=== PATIENT | male | born 1995 | race Caucasian/White ===

== ENCOUNTER 2017-06-03 11:06 | Inpatient (IN) | payer OTHER ==
[~2017-06-03] VITALS: Ht 177.8 cm; Wt 65.1 kg
[2017-06-03 11:49] LABS: BASO % 0.5 %; BASO ABS # 0.02 K/uL (0-0.2); COMPLETE YES; EOS % 1.8 %; HEMATOCRIT 43.6 % (42-52); IG% 0.3 %; LYMPH % 41.1 %; LYMPH ABS # 1.61 K/uL (1.2-3.4); MEAN CELL VOLUME 82.6 fL (80-100); MEAN CORPUSCULAR HEMOGLOBIN 27.5 pg (25-34); MEAN CORPUSCULAR HGB CONC 33.3 g/dl (32-36); MEAN PLATELET VOLUME 10.2 fL (7.4-10.4); MONO % 5.4 %; NEUT % 50.9 %; PLATELET COUNT 252 K/uL (130-400); RED BLOOD COUNT 5.28 M/uL (4.7-6.1); WHITE BLOOD COUNT 3.92 K/uL (4.8-10.8)
[2017-06-03 12:07] LABS: BUN/CREATININE RATIO 11.3 (10-20); CALCIUM 8.8 mg/dl (8.5-10.1); CREATININE 0.92 mg/dl (0.60-1.40); POTASSIUM 3.9 mmol/L (3.5-5.1)
[2017-06-03 12:33] LABS: URINE APPEARANCE CLEAR (CLEAR); URINE BILIRUBIN NEG (NEG); URINE COLOR YELLOW; URINE NITRITE NEG (NEG); URINE SPECIFIC GRAVITY 1.014 (1.000-1.030); UROBILINOGEN NEG (NEG)
[2017-06-03 12:34] LABS: MANUAL MICROSCOPIC REQUIRED? NO; REVIEW REQ? NO
--- NOTE | 2017-06-03 12:39 | EMERGENCY ROOM VISIT NOTE ---
History Report prepared by Nicole: Keiry Broussard Under the Supervision of: Dr. Zach Hollins M.D. 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 The patient was sent to the ED from [facility] on campus. He admitted to suicidal ideation with a plan. He was going to steal chemicals from the chemistry lab to make poison to kill himself. He has not been sleeping much lately and estimates that he has been getting about 3-4 hours of sleep each night. This has been going on since the beginning of the semester. The patient reports school is not going well and he has been skipping assignments and classes. Per [facility], the patient has been having thoughts of hurting others. He had to leave class because he wanted to kick a girl out of her chair. Source of History: patient, treating provider ([facility]) Onset: [employer] Position: other (mental health) Quality: other (suicidal) Timing: constant Note: Pt not sleeping. Having SI and HI. Review of Systems See HPI for pertinent positives & negatives. A total of 10 systems reviewed and were otherwise negative. Past Medical & Surgical Medical Problems: (1) No significant active problems Family History No pertinent history stated. Social History Smoking Status: Never Smoker Occupation Status: [employer] student Current/Historical Medications No Active Prescriptions or Reported Meds Allergies Coded Allergies: Penicillins (Unverified Allergy, Severe, CHILDHOOD, HIVES, RASH, SPOTS, ) Physical Exam Vital Signs Date Time Temp Pulse Resp B/P (MAP) Pulse Ox O2 Delivery O2 Flow Rate FiO2 06/03/17 17:15 36.6 84 16 116/61 100 06/03/17 11:09 36.6 84 16 116/61 100 Room Air Physical Exam GENERAL: Patient is a healthy-appearing well-nourished 22 year old male. HEAD: Normocephalic atraumatic EYES: Ocular movements intact pupils equal and react to light OROPHARYNX mucous membranes are moist no exudates present no erythema or edema present NECK: Supple no nuchal rigidity CHEST: Good equal expansion LUNGS: Clear and equal to auscultation CARDIAC: Normal S1 and S2 ABDOMEN: Soft nontender no guarding BACK: No CVA tenderness EXTREMITIES: No pain upon palpation normal muscle strength in all groups no clubbing cyanosis or edema NEURO: Patient is following commands and answering questions appropriately. Alert and oriented x3 Cranial Nerves 2-12 grossly intact PSYCH: Admits to HI and SI with plan. Medical Decision & Procedures Laboratory Results 06/03/17 11:36 Red Blood Count 5.28, Mean Corpuscular Volume 82.6, Mean Corpuscular Hemoglobin 27.5, Mean Corpuscular Hemoglobin Concent 33.3, Mean Platelet Volume 10.2, Neutrophils (%) (Auto) 50.9, Lymphocytes (%) (Auto) 41.1, Monocytes (%) (Auto) 5.4, Eosinophils (%) (Auto) 1.8, Basophils (%) (Auto) 0.5, Neutrophils # (Auto) 2.00, Lymphocytes # (Auto) 1.61, Monocytes # (Auto) 0.21, Eosinophils # (Auto) 0.07, Basophils # (Auto) 0.02 06/03/17 11:36 Test 06/03/17 11:36 06/03/17 11:40 White Blood Count 3.92 K/uL (4.8-10.8) Red Blood Count 5.28 M/uL (4.7-6.1) Hemoglobin 14.5 g/dL (14.0-18.0) Hematocrit 43.6 % (42-52) Mean Corpuscular Volume 82.6 fL (80-100) Mean Corpuscular Hemoglobin 27.5 pg (25-34) Mean Corpuscular Hemoglobin Concent 33.3 g/dl (32-36) Platelet Count 252 K/uL (130-400) Mean Platelet Volume 10.2 fL (7.4-10.4) Neutrophils (%) (Auto) 50.9 % Lymphocytes (%) (Auto) 41.1 % Monocytes (%) (Auto) 5.4 % Eosinophils (%) (Auto) 1.8 % Basophils (%) (Auto) 0.5 % Neutrophils # (Auto) 2.00 K/uL (1.4-6.5) Lymphocytes # (Auto) 1.61 K/uL (1.2-3.4) Monocytes # (Auto) 0.21 K/uL (0.11-0.59) Eosinophils # (Auto) 0.07 K/uL (0-0.5) Basophils # (Auto) 0.02 K/uL (0-0.2) RDW Standard Deviation 35.7 fL (36.4-46.3) RDW Coefficient of Variation 11.9 % (11.5-14.5) Immature Granulocyte % (Auto) 0.3 % Immature Granulocyte # (Auto) 0.01 K/uL (0.00-0.02) Anion Gap 4.0 mmol/L (3-11) Est Creatinine Clear Calc Drug Dose 122.9 ml/min Estimated GFR () 137.3 Estimated GFR (Non- 118.5 BUN/Creatinine Ratio 11.3 (10-20) Calcium Level 8.8 mg/dl (8.5-10.1) Total Bilirubin 1.1 mg/dl (0.2-1) Direct Bilirubin 0.2 mg/dl (0-0.2) Aspartate Amino Transf (AST/SGOT) 12 U/L (15-37) Alanine Aminotransferase (ALT/SGPT) 20 U/L (12-78) Alkaline Phosphatase 108 U/L (45-117) Total Protein 8.0 gm/dl (6.4-8.2) Albumin 4.3 gm/dl (3.4-5.0) Thyroid Stimulating Hormone (TSH) 1.000 uIu/ml (0.300-4.500) Ethyl Alcohol mg/dL < 3.0 mg/dl (0-3) Urine Color YELLOW Urine Appearance CLEAR (CLEAR) Urine pH 7.0 (4.5-7.5) Urine Specific [place] 1.014 (1.000-1.030) Urine Protein NEG (NEG) Urine Glucose (UA) NEG (NEG) Urine Ketones NEG (NEG) Urine Occult Blood NEG (NEG) Urine Nitrite NEG (NEG) Urine Bilirubin NEG (NEG) Urine Urobilinogen NEG (NEG) Urine Leukocyte Esterase NEG (NEG) Urine Opiates Screen NEG (NEG) Urine Methadone, Qualitative NEG (NEG) Urine Barbiturates NEG (NEG) Urine Phencyclidine (PCP) Level NEG (NEG) Ur Amphetamine/Methamphetamine NEG (NEG) MDMA (Ecstasy) Screen NEG (NEG) Urine Benzodiazepines Screen NEG (NEG) Urine Cocaine Metabolite NEG (NEG) Urine Marijuana (THC) NEG (NEG) Labs reviewed by ED physician. ED Course 1120: Past medical records reviewed. The patient was evaluated in room A7. A complete history and physical examination was performed. Medical Decision Differential diagnosis: Etiologies such as mood disorder, infection, hypoglycemia, electrolyte abnormalities, cardiac sources, intracerebral event, toxicologic, neurologic, as well as others were entertained. This is a 22-year-old male who presents emergency department over concerns that he is suicidal and threatening to kill other classmates. Patient had a specific plan to produce cyanide in his laboratory. He has not been sleeping. He has a normal CBC normal renal profile normal liver profile. I do feel the patient is medically cleared. I did discuss the case with case management. The patient was admitted to 3 S. Medication Reconcilliation Current Medication List: was personally reviewed by me Blood Pressure Screening Patient's blood pressure: Normal blood pressure Impression Primary Impression: Planning to commit suicide Scribe Attestation The scribe's documentation has been prepared under my direction and personally reviewed by me in its entirety. I confirm that the note above accurately reflects all work, treatment, procedures, and medical decision making performed by me. Departure Information Dispostion Still a Patient Prescriptions No Active Prescriptions or Reported Meds Referrals No Doctor, Assigned (PCP) Patient Instructions My [facility]
[2017-06-03 12:48] LABS: BENZODIAZEPINE, URINE NEG (NEG); COCAINE,URINE NEG (NEG); PHENCYCLIDINE, URINE NEG (NEG)
[2017-06-03] MEDS ORDERED: MAGNESIUM HYDROXIDE SUSP 30 ML UDC PO PRN (14:30)
[2017-06-03] MEDS ORDERED: BISMUTH SUBSALICYLATE PER ML OMNICELL CHARGE PO PRN (14:30)
[2017-06-03] MEDS ORDERED: ALUMINUM/MAGNESIUM SUSP 30 ML UDC PO PRN (14:30)
[2017-06-03] MEDS ORDERED: ACETAMINOPHEN 325 MG TAB PO PRN (14:30)
[2017-06-03] MEDS ORDERED: SODIUM CHLORIDE 0.65% NA SOLN 45 ML (OCEAN) PRN (14:30)
[2017-06-03] MEDS ORDERED: LORAZEPAM 1 MG TAB PO PRN (14:30)
[2017-06-03] MEDS ORDERED: hydrOXYzine HCL 25 MG TAB PO PRN ×2 (14:30)
[2017-06-03 17:15] VITALS: O2SAT 100
[2017-06-03 17:27] VITALS: BP 114/65; PULSE 78; TEMP 36.8; Ht 177.8 cm; Wt 65.1 kg
[2017-06-04 06:55] VITALS: BP_SYST 91; BP_SYST 92; BP_DIAS 58; BP_DIAS 59; PULSE 71; TEMP 36.8
--- NOTE | 2017-06-04 11:04 | Psychiatric History & Physical ---
History Date of Service Jun 04, 2017. Identifying Data Ty Barfield is a 22-year-old male ela at [employer]. Ty Barfield was admitted on a 201 voluntary. The patient was brought to the ED upon referral from the [facility] counseling service, [facility]. Information provided by the patient is considered to be reliable. Chief Complaint "I told my therapist that I was having thoughts of suicide, and when she asked me who I would contact if I was going to kill myself, like a smart ass I ask her why would tell anyone if I was going to kill myself?" History of Present Illness The patient is a 22-year-old man who was evaluated by the undersigned this morning. He was admitted yesterday afternoon from the emergency department or he had presented upon referral by the [facility] counseling service ("[facility]"). According to the record, and according the patient, the patient had told his therapist at [facility] that he was having suicidal thoughts. 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 He went as far as to research the quantity he would need to take to kill himself without experiencing a particularly painful . He tells me that he found that approximately 5 mL of Aniline would quickly cause , after perhaps inducing a brief seizure. The patient reports that he is suffered from depression since his high school years. He tells me that in his culture is not unusual for people to express feelings of sadness, but he has experienced depressed mood, apathy, anergy, anhedonia, intermittent and terminal insomnia, lack of motivation, and psychosocial withdrawal. Patient reports that his peers of depression have improved periodically during the past several years, but recently he has been more depressed than usual and, for the first time, stopped caring to the degree that he has begun failing certain classes. He says that he often daydreams in class, has difficulty paying attention, and tends to ruminate. Although the patient says that he did not necessarily have suicidal intent in the here and now, his plan was to create a lethal toxin in order to have on hand should he decide to act. The patient also says that although he has not deliberately made suicide attempts in the past, he has on several occasions intentionally walked into traffic without looking, and explains this by saying, "I guess I just didn't care if I got hit or not." He has never taken any psychiatric medications, and has had no trial of antidepressant medications. The reference to suicide threats noted above were made in his second session with his therapist. He says that he sought treatment because he was not motivated to study, or even play video games. Past Psychiatric History Current OP Treatment: therapist ([facility]) Prior OP Treatment: no prior treatment Prior Psych Hospitalizations: none Access to a Gun: No Suicide Attempts: No Additional Notes Although the patient says that he has never made a conscious suicide attempt, he acknowledges that there have been several occasions upon which she has stepped off a curb and into a straight without looking to see if a car was coming, and he explains this by saying that he, at those times, didn't care if he was struck by a car or not. Past Medical/Surgical History History of Concussion/Seizure: No (1) Major depression, recurrent (2) Planning to commit suicide Allergies Allergies: Coded Allergies: Penicillins (Unverified Allergy, Severe, CHILDHOOD, HIVES, RASH, SPOTS, ) Home Medications No Active Prescriptions or Reported Meds Family History Depression BROTHER, Onset:Adolescence (The patient only suspects that his brother may be depressed.) History of Suicide: No History of Substance Abuse: No Psychiatric History: Yes Alcohol Use Alcohol Use In Past 12 Months: No AUDIT Total Score: 0 Smoking Use Smoking Status: Never Smoker Substance History The patient reports that he has never used illicit chemical substances, and notes that the use of illicit drugs is prohibited by his orthodox. He also acknowledges that suicide is prohibited by his orthodox, but adds that he " picks and chooses" which lutheran law he chooses to follow. 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 He reports he manages this by avoiding eating particularly hard foods, such as almonds.) Cardiovascular: denies: no symptoms reported, see HPI, chest pain, chest tightness, chest pressure, diaphoresis, palpitations, syncope, other Respiratory: denies: no symptoms reported, see HPI, cough, orthopnea, short of breath, stridor, wheezing, sputum production, cyanosis, SARAH, PND, other Gastrointestinal: denies no symptoms reported, denies see HPI, denies abdominal pain, denies constipation, denies diarrhea, denies nausea, denies vomiting, denies other Genitourinary - Male: denies: no symptoms, see HPI, rash, amenorrhea, penile itching, penile discharge, testicular pain, testicular swelling, impotence, other Musculoskeletal: denies no symptoms reported, denies see HPI, denies back pain , denies gout, denies joint pain, denies joint swelling, denies muscle pain, denies muscle stiffness, denies neck pain, denies other Integumentary: denies no symptoms reported, denies see HPI, denies change in color, denies change in hair/nails, denies dryness, denies lesions, denies lumps , denies rash, denies other Neurologic: denies: no symptoms, see HPI, headache, numbness, paresthesias, pre -existing deficit, seizure, tingling, tremors, general weakness, tics, focal weakness, vertigo, lethargy, memory loss, dizziness, other Endocrine: denies: no symptoms, as stated in HPI, cold intolerance, heat intolerance, hair changes, goiter, polydipsia, polyuria, skin changes, other Hematologic / Lymphatic: denies: no symptoms, as stated in HPI, abnormal clotting, adenopathy, anemia, easy bleeding, easy bruising, gums bleeding, petechiae, other Examination Physical Examination A physical exam was performed in the ER prior to admission to the unit. I accept that physical as correct/medical clearance for the inpatient physical exam. Vital Signs Vital Signs Past 12 Hours Date Time Temp Pulse Resp B/P (MAP) Pulse Ox O2 Delivery O2 Flow Rate FiO2 10/13/17 06:55 36.8 71 16 91/59 92/58 Laboratory Results Last 24 Hours Test 06/03/17 11:36 06/03/17 11:40 White Blood Count 3.92 K/uL Red Blood Count 5.28 M/uL Hemoglobin 14.5 g/dL Hematocrit 43.6 % Mean Corpuscular Volume 82.6 fL Mean Corpuscular Hemoglobin 27.5 pg Mean Corpuscular Hemoglobin Concent 33.3 g/dl Platelet Count 252 K/uL Mean Platelet Volume 10.2 fL Neutrophils (%) (Auto) 50.9 % Lymphocytes (%) (Auto) 41.1 % Monocytes (%) (Auto) 5.4 % Eosinophils (%) (Auto) 1.8 % Basophils (%) (Auto) 0.5 % Neutrophils # (Auto) 2.00 K/uL Lymphocytes # (Auto) 1.61 K/uL Monocytes # (Auto) 0.21 K/uL Eosinophils # (Auto) 0.07 K/uL Basophils # (Auto) 0.02 K/uL RDW Standard Deviation 35.7 fL RDW Coefficient of Variation 11.9 % Immature Granulocyte % (Auto) 0.3 % Immature Granulocyte # (Auto) 0.01 K/uL Sodium Level 138 mmol/L Potassium Level 3.9 mmol/L Chloride Level 105 mmol/L Carbon Dioxide Level 29 mmol/L Anion Gap 4.0 mmol/L Blood Urea Nitrogen 10 mg/dl Creatinine 0.92 mg/dl Est Creatinine Clear Calc Drug Dose 122.9 ml/min Estimated GFR () 137.3 Estimated GFR (Non- 118.5 BUN/Creatinine Ratio 11.3 Random Glucose 89 mg/dl Calcium Level 8.8 mg/dl Total Bilirubin 1.1 mg/dl Direct Bilirubin 0.2 mg/dl Aspartate Amino Transf (AST/SGOT) 12 U/L Alanine Aminotransferase (ALT/SGPT) 20 U/L Alkaline Phosphatase 108 U/L Total Protein 8.0 gm/dl Albumin 4.3 gm/dl Thyroid Stimulating Hormone (TSH) 1.000 uIu/ml Ethyl Alcohol mg/dL < 3.0 mg/dl Urine Color YELLOW Urine Appearance CLEAR Urine pH 7.0 Urine Specific [place] 1.014 Urine Protein NEG Urine Glucose (UA) NEG Urine Ketones NEG Urine Occult Blood NEG Urine Nitrite NEG Urine Bilirubin NEG Urine Urobilinogen NEG Urine Leukocyte Esterase NEG Urine Opiates Screen NEG Urine Methadone, Qualitative NEG Urine Barbiturates NEG Urine Phencyclidine (PCP) Level NEG Ur Amphetamine/Methamphetamine NEG MDMA (Ecstasy) Screen NEG Urine Benzodiazepines Screen NEG Urine Cocaine Metabolite NEG Urine Marijuana (THC) NEG Mental Examination During interview pt is: alert and oriented, cooperative Appearance: appropriately dressed, appropriately groomed Eye contact is: good Motor behavior is: no abnormal motor movements Speech: normal in rate, rhythm & volume Affect: depressed Mood is: depressed Thought process: goal directed Thought content: reality based without delusions Suicidal thought are: present, Plan: present, Intent: denied Homicidal thoughts are: denied Hallucinations: denies auditory, denies visual Cognition: memory grossly intact Intelligence estimated to be: above average Insight: impaired Judgement: impaired Impression / Recommendations Impression This 22-year-old man has a history of recurrent major depressive episodes began during adolescence. He tells me that he has become good at "hiding" his true feelings, and endorses first rank symptoms of depression, including depressed mood, apathy, anergy, anhedonia, intermittent and terminal insomnia, psychosocial withdrawal, difficulty concentrating, and a general lack of motivation. The patient acknowledges that he has had recurrent suicidal thoughts, intermittently, for a number of years. While he feels that he was depressed during his first 2 years of college, this year his depression has intensified and has manifested itself by a lack of motivation to do well in school, and difficulty caring enough to study or pay attention in classes. He is clearly future oriented, and talks about wanting to leave the hospital so that he can complete several obligations he has involving games such as [employer]inja [employer] and [employer]. He also says that he is eager to get back to college so that he can "recover his grades," and successfully complete the current semester. At the same time, the patient provides a frighteningly specific suicide plan, and he freely admits that he has the ability to secure the poison that he would take to kill himself. He has never been offered a trial of antidepressant medications, and has only recently begun psychotherapy. During the evaluation I discussed the material risks and anticipated benefits of antidepressant medications, and specifically discussed a trial of sertraline ( Zoloft) with him. The patient indicated understanding after asking several questions. He is particular concern about the possibility of developing nausea because of his poor appetite, and I attempted to address these with him. My concern is that the patient, while clearly ambivalent about committing suicide, remains depressed, and although he endorses future plans, such as successfully completing this semester, leaving to on her commitments he has to play certain games with peers, etc., his present condition would prevent him from accomplishing his goals, and he would be at risk of imminent serious harm. Accordingly, I would like to start him on an antidepressant medication, observe him over the weekend, and consider that he may be ready for discharge early next week if all goes well. Inventory Assets Strengths: Intelligent. Strong lutheran thanh. Active interests. Enjoys hobbies such as horseback riding, reading, and has attempted to write a novel in the past. Needs: The patient has recurrent suicidal ideation within the context of recurrent major depression. Risk Factors Assessment Male: Yes : Yes /single/: Yes Higher / Fall in social status: No Access to guns: No Health problems: No Mental Health Diagnoses: Yes Substance use disorders: No Previous attempt: No Previous attempt;highly lethal: No Previous attempt; planned: No Previous attempt; didn't tell: No Family history of suicide: No Previous psychiatric stay: No Hopelessness: No Smoker: No Protective Factors Assessment Restorationism beliefs: Yes : No Responsible for young children: No Employed: No Stable relationships: Yes Supportive family: No Good rapport with provider: No Absence of risk factors above: No CPT Code Initial Hospital Care: 10875
[2017-06-04] MEDS ORDERED: SERTRALINE HCL 50 MG TAB PO ONE (11:30)
[2017-06-05 06:49] VITALS: BP_SYST 105; BP_SYST 112; BP_DIAS 62; BP_DIAS 74; PULSE 77; PULSE 87; TEMP 36.4
[2017-06-05] MEDS: SERTRALINE HCL 50 MG TAB PO SCH (07:58)
--- NOTE | 2017-06-05 10:04 | Psychiatric Progress Notes ---
Progress Note Date of Service Jun 05, 2017. Chief Complaint "It's sort of feels like a movie." Subjective Patient was seen & assessed interval progress reviewed with Treatment Team. No acute events overnight. Staff describe patient as poorly interactive during groups. Yesterday he rated his mood as 5 out of 10. He was started on Zoloft yesterday. This morning he reports that his first dose of Zoloft was associated with a few hours of nausea, however he seems to be tolerating it better this morning so far. We discussed his negative self assessment, feelings of failure, of not being "special." He demonstrates dichotomous thinking, either he is a success or a failure. He also tends to stratify value of people stating that he is "better" than his family at home but "I haven't done anything special." He describes feeling pity rather than empathy for his family at home. He compares himself negatively to his peers at school. He acknowledges continued feelings of hopelessness and that there is little purpose to his life. He states that no one would miss him if he was not here. That his parents would probably grief for a few days and then they would "get over it and they wouldn't have to burden." Review of Systems Abdomen: + nausea (yesterday but not this morning) Psychiatric: + problem reported (continued thoughts of worthlessness) Sleep Information Total Hours of Sleep: 6.25 Meal Information Percent of Breakfast Consumed: 100 Percent of Lunch Consumed: 100 Percent of Dinner Consumed: 0 Mental Status Exam During interview pt is: alert and oriented, cooperative Appearance: appropriately dressed, appropriately groomed Eye contact is: good Motor behavior is: no abnormal motor movements Speech: normal in rate, rhythm & volume Affect: depressed Mood is: depressed Thought process: goal directed Thought content: reality based without delusions, self deprecation Suicidal thought are: present, Plan: present, Intent: denied Homicidal thoughts are: denied Hallucinations: denies auditory, denies visual Cognition: memory grossly intact Intelligence estimated to be: above average Insight: impaired Judgement: impaired Impression This 22-year-old man has a history of recurrent major depressive episodes began during adolescence. He tells me that he has become good at "hiding" his true feelings, and endorses first rank symptoms of depression, including depressed mood, apathy, anergy, anhedonia, intermittent and terminal insomnia, psychosocial withdrawal, difficulty concentrating, and a general lack of motivation. The patient acknowledges that he has had recurrent suicidal thoughts, intermittently, for a number of years. While he feels that he was depressed during his first 2 years of college, this year his depression has intensified and has manifested itself by a lack of motivation to do well in school, and difficulty caring enough to study or pay attention in classes. He is clearly future oriented, and talks about wanting to leave the hospital so that he can complete several obligations he has involving games such as [employer] and [employer]. He also says that he is eager to get back to college so that he can "recover his grades," and successfully complete the current semester. At the same time, the patient provides a frighteningly specific suicide plan, and he freely admits that he has the ability to secure the poison that he would take to kill himself. He has never been offered a trial of antidepressant medications, and has only recently begun psychotherapy. During the evaluation I discussed the material risks and anticipated benefits of antidepressant medications, and specifically discussed a trial of sertraline ( Zoloft) with him. The patient indicated understanding after asking several questions. He is particular concern about the possibility of developing nausea because of his poor appetite, and I attempted to address these with him. My concern is that the patient, while clearly ambivalent about committing suicide, remains depressed, and although he endorses future plans, such as successfully completing this semester, leaving to on her commitments he has to play certain games with peers, etc., his present condition would prevent him from accomplishing his goals, and he would be at risk of imminent serious harm. Accordingly, I would like to start him on an antidepressant medication, observe him over the weekend, and consider that he may be ready for discharge early next week if all goes well. Plan (1) Major depression, recurrent 06/05/17 - Continue Zoloft 50 mg daily watching nausea - Encouraged to participate in unit programming to facilitate more balanced insight. 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 Strong religion thanh. Active interests. Enjoys hobbies such as horseback riding, reading, and has attempted to write a novel in the past. Needs: The patient has recurrent suicidal ideation within the context of recurrent major depression. Risk Factors Assessment Male: Yes : Yes /single/: Yes Higher / Fall in social status: No Health problems: No Mental Health Diagnoses: Yes Substance use disorders: No Previous attempt: No Previous attempt;highly lethal: No Previous attempt; planned: No Previous attempt; didn't tell: No Family history of suicide: No Previous psychiatric stay: No Hopelessness: No Smoker: No Protective Factors Assessment Temple beliefs: Yes : No Responsible for young children: No Employed: No Stable relationships: Yes Supportive family: No Good rapport with provider: No Absence of risk factors above: No Data Vital Signs Last 24 Hrs: Date Time Temp Pulse Resp B/P (MAP) Pulse Ox O2 Delivery O2 Flow Rate FiO2 06/05/17 06:49 36.4 77 16 105/62 87 112/74 Meds Administered Last 24 Hrs: Meds Administered (Past 24Hrs) Medications (Trade) Dose Ordered Sig/Feli Route Start Time Stop Time Status Last Admin Dose Admin Sertraline HCl (Zoloft Tab) 50 mg QAM PO 06/05/17 09:00 07/05/17 08:59 06/05/17 07:58 50 MG Sertraline HCl (Zoloft Tab) 50 mg NOW ONCE PO 06/04/17 11:30 06/04/17 11:31 DC 06/04/17 11:42 50 MG Problem Qualifiers (1) Major depression, recurrent: Active/Remission status: currently active Major depression episode severity: severe Psychotic features: without psychotic features Qualified Codes: F33.2 - Major depressive disorder, recurrent severe without psychotic features
[2017-06-06 06:59] VITALS: BP_SYST 92; BP_SYST 94; BP_DIAS 56; BP_DIAS 63; PULSE 63; PULSE 87; TEMP 36.7
[2017-06-06] MEDS: SERTRALINE HCL 50 MG TAB PO SCH (08:55)
--- NOTE | 2017-06-06 12:02 | Psychiatric Progress Notes ---
Progress Note Date of Service Jun 06, 2017. Chief Complaint "I'm beginning to realize some things about the way that I think". Subjective Patient was seen & assessed interval progress reviewed with Treatment Team. Patient submitted a 72 hour notice last evening which will be due on the at 1458. He was visited by friends last evening and appeared social. He has not complained of nausea. No acute events overnight. On interview this morning the patient now feels that he is tolerating the Zoloft well however his appetite is a little diminished this morning. He has identified that learning of a new relationship between a male and female friend recently seemed to trigger some low mood and negative self scrutiny. "I felt like I lost a challenge." This was explored and he identifies belief that the female friend ( whom he reports he had no particular interest in beyond the friendship) chose to date his male friend because he was smarter than the patient. Attempted to eliminate the distorted thinking involved in this and identified that he likely has a pattern of similar thinking, hypersensitive to evidence that he may be "defective" in some way. This appeared to resonate with him and he was encouraged to continue to explore this and psychotherapy here on the unit and also individually as an outpatient. 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 We also explored his homicidal impulses noted a presentation in regard to continuing his medically necessary private room. He reports that these impulses have been rather abrupt and out of the blue in the past, often in proximity to his peers. He acknowledges that he has had some homicidal/ aggressive impulses towards another young male patient within the last 24 hours and fantasized about fighting this individual but try to distract himself. He expresses feeling uncertain about how he would react to being in close proximity to a roommate "if he talked too much." As such, we'll continue the room for another 24 hours. Review of Systems Abdomen: No nausea Psychiatric: + depression symptoms Sleep Information Total Hours of Sleep: 5.50 Meal Information Percent of Breakfast Consumed: 75 Percent of Lunch Consumed: 100 Percent of Dinner Consumed: 100 Mental Status Exam During interview pt is: alert and oriented, cooperative Appearance: appropriately dressed, appropriately groomed Eye contact is: good Motor behavior is: steady gait & station Speech: normal in rate, rhythm & volume Affect: mood congruent Mood is: depressed, other (but with some interval improvement noted) Thought process: goal directed Thought content: reality based without delusions, self deprecation Suicidal thought are: present, Plan: present, Intent: denied Homicidal thoughts are: present, Intent: denied Hallucinations: denies auditory, denies visual Cognition: memory grossly intact Intelligence estimated to be: above average Insight: impaired Judgement: impaired Plan (1) Major depression, recurrent 06/05/17 - Continue Zoloft 50 mg daily watching nausea - Encouraged to participate in unit programming to facilitate more balanced insight. 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 Strong samaritan thanh. Active interests. Enjoys hobbies such as horseback riding, reading, and has attempted to write a novel in the past. Needs: The patient has recurrent suicidal ideation within the context of recurrent major depression. Risk Factors Assessment Male: Yes : Yes /single/: Yes Higher / Fall in social status: No Health problems: No Mental Health Diagnoses: Yes Substance use disorders: No Previous attempt: No Previous attempt;highly lethal: No Previous attempt; planned: No Previous attempt; didn't tell: No Family history of suicide: No Previous psychiatric stay: No Hopelessness: No Smoker: No Protective Factors Assessment Christianity beliefs: Yes : No Responsible for young children: No Employed: No Stable relationships: Yes Supportive family: No Good rapport with provider: No Absence of risk factors above: No Data Vital Signs Last 24 Hrs: Date Time Temp Pulse Resp B/P (MAP) Pulse Ox O2 Delivery O2 Flow Rate FiO2 06/06/17 06:59 36.7 63 16 92/56 87 94/63 Meds Administered Last 24 Hrs: Meds Administered (Past 24Hrs) Medications (Trade) Dose Ordered Sig/Feli Route Start Time Stop Time Status Last Admin Dose Admin Sertraline HCl (Zoloft Tab) 50 mg QAM PO 06/05/17 09:00 07/05/17 08:59 06/06/17 08:55 50 MG Problem Qualifiers (1) Major depression, recurrent: Active/Remission status: currently active Major depression episode severity: severe Psychotic features: without psychotic features Qualified Codes: F33.2 - Major depressive disorder, recurrent severe without psychotic features
[2017-06-06] MEDS ORDERED: SERTRALINE HCL 50 MG TAB PO ONE (12:15)
[2017-06-07 06:53] VITALS: BP_SYST 84; BP_SYST 94; BP_DIAS 46; BP_DIAS 62; PULSE 81; PULSE 91; TEMP 36.4
[2017-06-07] MEDS: SERTRALINE HCL 50 MG TAB PO SCH (08:49)
--- NOTE | 2017-06-07 13:01 | Psychiatric Progress Notes ---
Progress Note Date of Service Jun 07, 2017. Chief Complaint "They were going well, but just started feeling depressed suddenly last evening ". Subjective Patient was seen & assessed interval progress reviewed with Treatment Team. Staff reports the patient is attending groups, participating, and is pleasant and social with others. He had multiple friends visit over the weekend. His sertraline has been increased to 75 mg daily. He states that his mood had initially improved on admission, but then worsened suddenly last night when playing cards with peers, and he is not sure why. He states "it's probably something genetic," saying his mother just disclosed to him during this hospitalization that there is a significant family history of depression. He also thinks that he was "subduing my stressors," stating that he is having a "crisis of thanh," and was also supposed to be engaged as part of an arranged marriage earlier this year, but his father contacted him in March and told him that he didn't think the patient was ready to be , so they were not going to move forward with it. He states that he "didn't process it immediately ," as he was busy with moving back to the [facility] and getting ready for the semester to start, but has now been thinking about it more, and feels badly about it. He states that he is here because he "slipped up and told my therapist I was thinking of killing myself. If all went according to plan, I don't think I'd be alive right now." He states he was planning on killing himself today, as "the weekend would be over, and I wouldn't have to deal with the work." He says he still considers suicide option, but only as a last resort , "a hail Marcy." He states he is performing poorly in school, and is considering a medical withdrawal. He is not sure if he would return home to [facility] or stay in the [place], and says he would prefer to stay here and "travel around." He says his mother "blames herself for me being in the hospital and being treated like a convict," and thinks his father is mad at him for "telling people I'm gonna kill myself." He admits to thoughts to harm others, which she says have been going on for years, although he denies he's ever actually acted on them. He says that prior to admission, they were "clouding my mind," but since hospitalization, they have only occurred once on Wednesday, when he was annoyed with a peer. He states that he does not think he would ever act on these thoughts, unless another person that assaulted him. He states he submitted a 72 hour notice because he is "bored," but after some discussion of the treatment recommendations and concerns about his lack of a discharge plan, he agreed to rescind it. Joined the patient and social science professor for a family meeting with his parents by phone, as they expressed concerns about him being prescribed medications. Provided information about what the medications are being used for and what they can reasonably be expected to do, and also discussed recommendations for outpatient treatment after discharge. The patient ultimately agreed to take a medical withdrawal and return home to [facility], and father is coming to [id number] on Wednesday. See social science professor note for details. Sleep Information Total Hours of Sleep: 7.00 Meal Information Percent of Breakfast Consumed: 100 Percent of Lunch Consumed: 100 Percent of Dinner Consumed: 100 Mental Status Exam During interview pt is: alert and oriented, cooperative Appearance: appropriately dressed (street cltohes, wrapped in blanket), appropriately groomed Eye contact is: good Motor behavior is: steady gait & station, no abnormal motor movements Speech: normal in rate, rhythm & volume Affect: mood congruent, other (reactive and mood congruent) Mood is: depressed Thought process: goal directed Thought content: reality based without delusions, self deprecation Suicidal thought are: denied Homicidal thoughts are: present (thoughts to harm others last occurred Sat., denies intent) Hallucinations: denies auditory, denies visual Cognition: memory grossly intact, attention grossly intact, language grossly intact Intelligence estimated to be: above average Insight: fair Judgement: fair Summary of Past History Ali is tolerating sertraline well, with some mild nausea, and after a family meeting with his parents, decided to medically withdrawal from school and return home to [facility]. We will need to work with him, the school, and his parents to coordinate this and ensure safe transition of care. is going to look into local aftercare in their area, and is flying to the at the end of the week. At this time, he requires continued inpatient care due to the risk for decompensation and harm to self and others if discharged prematurely. Plan (1) Major depression, recurrent 06/05/17 - Continue Zoloft 50 mg daily watching nausea - Encouraged to participate in unit programming to facilitate more balanced insight. 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 Monitor nausea. - Family meeting held with parents, and patient is going to pursue a medical withdrawal. He will be returning home to [facility], so we will need to arrange aftercare there. Discharge / Aftercare Planning Primary Care Physician: Name: None Therapist: Name: Hannah Corley, ANGIE Visit Code E&M Code: 64995 Inventory Assets Strengths: Intelligent. Strong scientology thanh. Active interests. Enjoys hobbies such as horseback riding, reading, and has attempted to write a novel in the past. Needs: The patient has recurrent suicidal ideation within the context of recurrent major depression. Risk Factors Assessment Male: Yes : Yes /single/: Yes Higher / Fall in social status: No Health problems: No Mental Health Diagnoses: Yes Substance use disorders: No Previous attempt: No Previous attempt;highly lethal: No Previous attempt; planned: No Previous attempt; didn't tell: No Family history of suicide: No Previous psychiatric stay: No Hopelessness: No Smoker: No Protective Factors Assessment Uatsdin beliefs: Yes : No Responsible for young children: No Employed: No Stable relationships: Yes Supportive family: Yes Good rapport with provider: No Absence of risk factors above: No Data Vital Signs Last 24 Hrs: Date Time Temp Pulse Resp B/P (MAP) Pulse Ox O2 Delivery O2 Flow Rate FiO2 06/07/17 06:53 36.4 81 16 84/46 91 94/62 Meds Administered Last 24 Hrs: Meds Administered (Past 24Hrs) Medications (Trade) Dose Ordered Sig/Feli Route Start Time Stop Time Status Last Admin Dose Admin Sertraline HCl (Zoloft Tab) 75 mg QAM PO 06/07/17 09:00 07/05/17 08:59 06/07/17 08:49 75 MG Sertraline HCl (Zoloft Tab) 25 mg NOW ONCE PO 06/06/17 12:15 06/06/17 12:25 DC 06/06/17 12:43 25 MG Problem Qualifiers (1) Major depression, recurrent: Active/Remission status: currently active Major depression episode severity: severe Psychotic features: without psychotic features Qualified Codes: F33.2 - Major depressive disorder, recurrent severe without psychotic features
[2017-06-08 06:48] VITALS: BP_SYST 114; BP_SYST 96; BP_DIAS 58; BP_DIAS 69; PULSE 63; PULSE 92; TEMP 36.6
[2017-06-08] MEDS: SERTRALINE HCL 50 MG TAB PO SCH (09:01)
--- NOTE | 2017-06-08 10:47 | Psychiatric Progress Notes ---
Progress Note Date of Service Jun 08, 2017. Chief Complaint "Unfortunately I feel like another bout of depression". Subjective Patient was seen & assessed interval progress reviewed with Nursing. Staff report he is going to groups and participating. He had a difficult meeting with his parents in [facility] by phone yesterday. He told staff he felt guilty after friends visited and he didn't feel anything towards them. Today he states he feels worse after talking to his parents, "after hearing my mom cry, I started thinking about suicide again...the thoughts are there, 'You're such a disappointment, you should kill yourself, look what you're doing to your mom, you're wasting your time'." He feels safe in the hospital, but doesn't feel safe to leave, as he feel overwhelmed by these thoughts. He is trying to think positively, and to have hope that he will recover. He talks about "defense mechanisms" he uses where he feels no emotions, as he prefers that to feeling negative emotions, and thinks this is not healthy. He says he has not "really cried in a long time, I just fake cry." He is still considering his options after discharge, and parents are looking into providers in [facility], but he is still not sure he will return there immediately. He is thinking about staying in [place] until , vs going home to [facility] now and returning to [facility] for the spring. He is hoping to not spend much time at home in [facility], as he thinks it will be harder to return to school if he is gone for too long. He is planning to stay in [place] for at least a few weeks after discharge as "I have some things to take care of first." Sleep Information Total Hours of Sleep: 6.75 Meal Information Percent of Breakfast Consumed: 75 Percent of Lunch Consumed: 75 Percent of Dinner Consumed: 100 Mental Status Exam During interview pt is: alert and oriented, cooperative Appearance: appropriately dressed (street clothes, wrapped in blanket), appropriately groomed Eye contact is: good Motor behavior is: steady gait & station, no abnormal motor movements Speech: normal in rate, rhythm & volume Affect: mood congruent, other (reactive and mood congruent) Mood is: depressed Thought process: goal directed Thought content: reality based without delusions, self deprecation Suicidal thought are: denied Homicidal thoughts are: present (thoughts to harm others last occurred Sat., denies intent) Hallucinations: denies auditory, denies visual Cognition: memory grossly intact, attention grossly intact, language grossly intact Intelligence estimated to be: above average Insight: fair Judgement: fair Summary of Past History Ali is tolerating sertraline well, and we will increase the dose 200 mg for tomorrow. After the family meeting with his parents, he has decided to medically withdrawal from school and return home to [facility], but may not do this for several weeks, so we'll need local aftercare in the interim. We will need to work with him, the school, and his parents to coordinate this and ensure safe transition of care. Father is going to look into local aftercare in their area, and is flying to the at the end of the week. At this time, he requires continued inpatient care due to the risk for suicide, as he has had a recurrence of suicidal thoughts over the past 2 days in the context of distress about his situation. He is able to contract for safety in the hospital, but not outside. Plan (1) Major depression, recurrent 06/05/17 - Continue Zoloft 50 mg daily watching nausea - Encouraged to participate in unit programming to facilitate more balanced insight. 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 Monitor nausea. - Family meeting held with parents, and patient is going to pursue a medical withdrawal. He will be returning home to [facility], so we will need to arrange aftercare there. 06/08 - Increase sertraline to 100mg qam for tomorrow to target depression. - Continue to work on discharge plans, as patient unsure when he will be returning to [facility], and will need aftercare locally in the interim. He has a therapist at [facility], so we will refer him back there and requested psychiatric appointment as well. - Parents working on locating a therapist and psychiatrist in [facility]. Discharge / Aftercare Planning Primary Care Physician: Name: None Therapist: Name: aHnnah Corley CAPS Visit Code E&M Code: 93176 Inventory Assets Strengths: Intelligent. Strong anabaptism thanh. Active interests. Enjoys hobbies such as horseback riding, reading, and has attempted to write a novel in the past. Needs: The patient has recurrent suicidal ideation within the context of recurrent major depression. Risk Factors Assessment Male: Yes : Yes /single/: Yes Higher / Fall in social status: No Health problems: No Mental Health Diagnoses: Yes Substance use disorders: No Previous attempt: No Previous attempt;highly lethal: No Previous attempt; planned: No Previous attempt; didn't tell: No Family history of suicide: No Previous psychiatric stay: No Hopelessness: No Smoker: No Protective Factors Assessment Buddhist beliefs: Yes : No Responsible for young children: No Employed: No Stable relationships: Yes Supportive family: Yes Good rapport with provider: No Absence of risk factors above: No Data Vital Signs Last 24 Hrs: Date Time Temp Pulse Resp B/P (MAP) Pulse Ox O2 Delivery O2 Flow Rate FiO2 06/08/17 06:48 36.6 63 16 96/58 92 114/69 Meds Administered Last 24 Hrs: Meds Administered (Past 24Hrs) Medications (Trade) Dose Ordered Sig/Feli Route Start Time Stop Time Status Last Admin Dose Admin Sertraline HCl (Zoloft Tab) 75 mg QAM PO 06/07/17 09:00 07/05/17 08:59 06/08/17 09:01 75 MG Sertraline HCl (Zoloft Tab) 25 mg NOW ONCE PO 06/06/17 12:15 06/06/17 12:25 DC 06/06/17 12:43 25 MG Problem Qualifiers (1) Major depression, recurrent: Active/Remission status: currently active Major depression episode severity: severe Psychotic features: without psychotic features Qualified Codes: F33.2 - Major depressive disorder, recurrent severe without psychotic features
[2017-06-09 06:54] VITALS: BP_SYST 103; BP_SYST 95; BP_DIAS 57; BP_DIAS 64; PULSE 71; PULSE 79; TEMP 36.3
[2017-06-09] MEDS ORDERED: SERTRALINE HCL 100 MG TAB PO SCH (09:00)
[2017-06-09] MEDS ORDERED: ZLF/100 PO (09:45)
--- NOTE | 2017-06-09 09:56 | Discharge Instructions ---
Discharge Information Report Includes Report will include the: Discharge Instructions & Summary Admission Admission Date / Time: Jun 03, 2017 at 17:15 Reason for Admission: Depression Nos Discharge Discharge Diagnosis / Problem: Depression Condition at Discharge: Good Discharge Goals Goal(s): Decrease discomfort, Improve disease control, Prevent Disease Progression Activity Recommendations Activity Limitations: resume your previous activity . Instructions / Follow-Up Instructions / Follow-Up . SPECIAL CARE INSTRUCTIONS: 1. Follow through with your scheduled aftercare appointments. If unable to keep an appointment, please call to reschedule. 2. Take your medication only as prescribed. Medication should not be changed or stopped without the approval of your doctor. In the event of worsening symptoms or concerns about side effects, contact your doctor immediately. 3. Utilize new healthy coping skills, anger management skills, and stress management skills learned during your hospitalization. Journal feelings and process them with a support person. Identify stressors or situations that may result in relapse, deterioration or inappropriate behaviors and develop a plan to deal with those issues. 4. If your coping skills are ineffective and you are in crisis, contact your outpatient providers for direction. If unable to reach your providers, please call the CAN HELP LINE AT or go to the closest Emergency Room. 5. Avoid alcohol and un-prescribed drugs. 6. You have been provided with the Mental Health Advance Directives Pamphlet for your review. AFTERCARE APPOINTMENTS: * Please call your insurance company prior to your scheduled appointment to confirm your aftercare providers are covered. Take your insurance information to your appointments. . Discharge / Aftercare Planning Primary Care Physician: Name: None Therapist: Name Of Therapist: Hannah Corley CAPS Home Health Services: Home Health Services: none . Follow-Up Care Plan for Follow-Up Care: The patient will return to [facility] for psychiatric care. Current Hospital Diet Patient's current hospital diet: Kosher Diet Discharge Diet Recommended Diet: Kosher Diet Procedures Procedures Performed: No Pending Studies Pending Studies at Discharge: No Medical Emergencies . Who to Call and When: Medical Emergencies: For questions or emergencies related to your hospital stay, please contact the Inpatient Behavioral Health Unit at [phone]. A senior applications analyst is on-call 15/03 for the Behavioral Health Unit for emergencies At any time you feel your situation is an emergency, you may also call 911 immediately. . Non-Emergent Contact Non-Emergency issues call your: Psychiatrist, Therapist Advance Directives Existing Advance Directive: No Do You Have an Existing Mental: No Existing Living Will: No Existing Power of Curam Developer: No Advance Directives Info Given: To Pt/S.O. Advance Directives Reason: Declines as Mental Health Visit. Discharge Summary Admission HPI Per the Admitting provider: The patient is a 22-year-old man who was evaluated by the undersigned this morning. He was admitted yesterday afternoon from the emergency department or he had presented upon referral by the [facility] counseling service ("[facility]"). According to the record, and according the patient, the patient had told his therapist at [facility] that he was having suicidal thoughts. 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 He went as far as to research the quantity he would need to take to kill himself without experiencing a particularly painful . He tells me that he found that approximately 5 mL of Aniline would quickly cause , after perhaps inducing a brief seizure. The patient reports that he is suffered from depression since his high school years. He tells me that in his culture is not unusual for people to express feelings of sadness, but he has experienced depressed mood, apathy, anergy, anhedonia, intermittent and terminal insomnia, lack of motivation, and psychosocial withdrawal. Patient reports that his peers of depression have improved periodically during the past several years, but recently he has been more depressed than usual and, for the first time, stopped caring to the degree that he has begun failing certain classes. He says that he often daydreams in class, has difficulty paying attention, and tends to ruminate. Although the patient says that he did not necessarily have suicidal intent in the here and now, his plan was to create a lethal toxin in order to have on hand should he decide to act. The patient also says that although he has not deliberately made suicide attempts in the past, he has on several occasions intentionally walked into traffic without looking, and explains this by saying, "I guess I just didn't care if I got hit or not." He has never taken any psychiatric medications, and has had no trial of antidepressant medications. The reference to suicide threats noted above were made in his second session with his therapist. He says that he sought treatment because he was not motivated to study, or even play video games. Hospital Course (1) Major depression, recurrent 06/05/17 - Continue Zoloft 50 mg daily watching nausea - Encouraged to participate in unit programming to facilitate more balanced insight. 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 Monitor nausea. - Family meeting held with parents, and patient is going to pursue a medical withdrawal. He will be returning home to [facility], so we will need to arrange aftercare there. 06/08 - Increase sertraline to 100mg qam for tomorrow to target depression. - Continue to work on discharge plans, as patient unsure when he will be returning to [facility], and will need aftercare locally in the interim. He has a therapist at [facility], so we will refer him back there and requested psychiatric appointment as well. - Parents working on locating a therapist and psychiatrist in [facility]. Risk Factors Assessment Male: Yes : Yes /single/: Yes Higher / Fall in social status: No Health problems: No Mental Health Diagnoses: Yes Substance use disorders: No Previous attempt: No Previous attempt;highly lethal: No Previous attempt; planned: No Previous attempt; didn't tell: No Family history of suicide: No Previous psychiatric stay: No Hopelessness: No Smoker: No Protective Factors Assessment Muslim beliefs: Yes : No Responsible for young children: No Employed: No Stable relationships: Yes Supportive family: Yes Good rapport with provider: No Absence of risk factors above: No Day of Discharge Assessment COURSE OF HOSPITALIZATION: The patient was on our unit for 6 days. He was admitted voluntarily with acute suicidality and harmful thoughts toward others. He had a specific plan to create a specific compound in the chemistry lab and had researched how much it would take to kill him. He was also having aggressive thoughts about hurting other people, for example wanting to kick a classmate's chair out from underneath her. During his stay the patient was willing to start medications and so was started on Zoloft 100 mg daily. His family was involved via phone from [facility]. The family was not necessarily in supportive medications, fearing long-term effects but eventually it was the patient's decision to continue. He was noted to have a number of personality traits including narcissistic traits that will need to be further followed. He did have suicidal thinking through the first portion of his stay although these continued to deteriorate and his condition improved progressively. During his stay he worked on coping strategies and agreed to return to counseling at [facility] after discharge. His father will be coming from [facility] in 2 days and will be here in [place] with him for a period of time. DAY OF DISCHARGE ASSESSMENT: Today the patient is requesting discharge. He is improved and without suicidal or homicidal thinking. He admits that he still has occasional flashes when he thinks life is worth living but says "I want to fight" and has a number of coping strategies and his toolbox to use when he has these thoughts. He is looking forward to his father's arrival on Wednesday. Today he is casually and appropriately dressed and groomed. Gait and station are within normal limits. Eye contact is good. Affect is blunted. Speech is of normal rate volume and tone. Thoughts are organized, goal directed, and without evidence of thought disorder. Recent and remote memory are intact per conversation. Intelligence is estimated to be average. Insight and judgment are improved over admission. Laboratory Test 06/03/17 11:36 06/03/17 11:40 White Blood Count 3.92 Red Blood Count 5.28 Hemoglobin 14.5 Hematocrit 43.6 Mean Corpuscular Volume 82.6 Mean Corpuscular Hemoglobin 27.5 Mean Corpuscular Hemoglobin Concent 33.3 Platelet Count 252 Mean Platelet Volume 10.2 Neutrophils (%) (Auto) 50.9 Lymphocytes (%) (Auto) 41.1 Monocytes (%) (Auto) 5.4 Eosinophils (%) (Auto) 1.8 Basophils (%) (Auto) 0.5 Neutrophils # (Auto) 2.00 Lymphocytes # (Auto) 1.61 Monocytes # (Auto) 0.21 Eosinophils # (Auto) 0.07 Basophils # (Auto) 0.02 RDW Standard Deviation 35.7 RDW Coefficient of Variation 11.9 Immature Granulocyte % (Auto) 0.3 Immature Granulocyte # (Auto) 0.01 Sodium Level 138 Potassium Level 3.9 Chloride Level 105 Carbon Dioxide Level 29 Anion Gap 4.0 Blood Urea Nitrogen 10 Creatinine 0.92 Est Creatinine Clear Calc Drug Dose 122.9 Estimated GFR () 137.3 Estimated GFR (Non- 118.5 BUN/Creatinine Ratio 11.3 Random Glucose 89 Calcium Level 8.8 Total Bilirubin 1.1 Direct Bilirubin 0.2 Aspartate Amino Transferase (AST) 12 Alanine Aminotransferase (ALT) 20 Alkaline Phosphatase 108 Total Protein 8.0 Albumin 4.3 Thyroid Stimulating Hormone (TSH) 1.000 Ethyl Alcohol mg/dL < 3.0 Urine Color YELLOW Urine Appearance CLEAR Urine pH 7.0 Urine Specific [place] 1.014 Urine Protein NEG Urine Glucose (UA) NEG Urine Ketones NEG Urine Occult Blood NEG Urine Nitrite NEG Urine Bilirubin NEG Urine Urobilinogen NEG Urine Leukocyte Esterase NEG Urine Opiates Screen NEG Urine Methadone, Qualitative NEG Urine Barbiturates NEG Urine Phencyclidine (PCP) Level NEG Ur Amphetamine/Methamphetamine NEG MDMA (Ecstasy) Screen NEG Urine Benzodiazepines Screen NEG Urine Cocaine Metabolite NEG Urine Marijuana (THC) NEG Total Time Total Time Spent (min): Greater than 30 minutes Total Time Included: examination of the patient, discharge planning, medication reconciliation, communication with other providers Tobacco Cessation at Discharge Smoking Status: Never Smoker FDA approved Prescription: non-smoker Problem Qualifiers (1) Major depression, recurrent: Active/Remission status: currently active Major depression episode severity: severe Psychotic features: without psychotic features Qualified Codes: F33.2 - Major depressive disorder, recurrent severe without psychotic features
== END 2017-06-09 12:50 | disposition home or self-care (01) | DRG 885 ==
LOC: C.EDB 11:08 → EDBEDREQ 17:13 → C.MHU 17:15
PROVIDERS: ADMIT Psychiatry & Neurology Psychiatry; ATTEND Psychiatry & Neurology Psychiatry
DX: F33.2 Major depressive disorder, recurrent severe without psychotic features (principal); R45.851 Suicidal ideations; Z88.0 Allergy status to penicillin

== ENCOUNTER 2017-11-27 17:46 | Inpatient (IN) | payer OTHER ==
[~2017-11-27] VITALS: Ht 177.8 cm; Wt 69.4 kg
[~2017-11-27 17:46] MED LIST: ZLF/100 PO
--- NOTE | 2017-11-27 18:53 | EMERGENCY ROOM VISIT NOTE ---
History Report prepared by Nicole: Mariely Gorman Under the Supervision of: Dr. Ronan Lentz M.D. First contact with patient: 18:11 Chief Complaint: MENTAL HEALTH EVALUATION Stated Complaint: SUICIDAL History of Present Illness The patient is a 22 year old male who presents to the Emergency Room for a mental health evaluation. The patient states that sometime between 2100 last night and 0200 this morning he attempted suicide by hanging himself with his belt on the door handle. He reports that the belt stretched and crated an air pocket. He states that he shot up from it. He reports that he thinks he just fell asleep after. He reports that he doesn't remember much of yesterday, but states that he remembers that he did not feel depressed before doing it. He states that he believes he took his depression medications that day. The patient states that he tried researching what drugs would make him doze off to sleep and not wake up, but states that it isn't worth it. The patient reports that he has had a plan in the past before, but never followed through with it. He notes that he does see a therapist and psychiatrist. He states that he last saw his therapist two days ago. The patient notes that school could be better, but that he is passing. He reports that he wants to do better. The patient complains of having no relationships in his life. He notes that he has been inpatient once before in June of last year at [address] [place] [address]. The patient denies use of alcohol, the use of drugs, taking any pills last night, neck pain , difficulty breathing, and homicidal ideations. Source of History: patient Onset: last night Position: other (global) Quality: other (mental health) Timing: other (episode) Associated Symptoms: No neck pain, No SOB Note: The patient complains of not having any relationships and attempting suicide. The patient denies homicidal ideations and depression. Review of Systems See HPI for pertinent positives & negatives. A total of 10 systems reviewed and were otherwise negative. Past Medical & Surgical Medical Problems: (1) Major depression, recurrent (2) No significant active problems (3) TMJ (temporomandibular joint syndrome) Old medical records were reviewed. Nurse's notes were reviewed and I agree with. 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 HEENT: Normal cephalic atraumatic. Pupils are equal round and reactive to light. Extraocular movements are intact. Oropharynx is pink with moist mucous membranes. No swelling of the mouth lips or tongue. Neck: Supple with a midline trachea. No meningeal signs or stiffness, no JVD or bruits. No Stridor. No external signs of trauma. No crepitus. No bruits. Chest: Clear to auscultation bilaterally. No wheezes or rhonchi. No increased work of breathing. Heart: regular rate and rhythm. Abdomen: Soft nontender, nondistended without rebound guarding or rigidity. Extremities: No cyanosis clubbing or edema. No calf tenderness or assymetry Spine/Back. Non tender to palpation. No CVA tenderness Skin: Good turgor without rashes. Neurologic exam: Cranial nerves two through 12 are intact. Motor and sensation are intact and symmetrical throughout. Psych: Normal affect and thought process. Denies homicidal ideations. Has suicidal ideations. Medical Decision & Procedures Laboratory Results 11/27/17 18:44 Red Blood Count 5.19, Mean Corpuscular Volume 82.7, Mean Corpuscular Hemoglobin 28.1, Mean Corpuscular Hemoglobin Concent 34.0, Mean Platelet Volume 9.8, Neutrophils (%) (Auto) 66.3, Lymphocytes (%) (Auto) 27.1, Monocytes (%) (Auto) 4.6, Eosinophils (%) (Auto) 1.5, Basophils (%) (Auto) 0.4, Neutrophils # (Auto) 4.42, Lymphocytes # (Auto) 1.81, Monocytes # (Auto) 0.31, Eosinophils # (Auto) 0.10, Basophils # (Auto) 0.03 11/27/17 18:44 Test 11/27/17 18:18 11/27/17 18:44 Urine Color DK YELLOW Urine Appearance CLEAR (CLEAR) Urine pH 5.5 (4.5-7.5) Urine Specific Shelley 1.026 (1.000-1.030) Urine Protein NEG (NEG) Urine Glucose (UA) NEG (NEG) Urine Ketones NEG (NEG) Urine Occult Blood NEG (NEG) Urine Nitrite NEG (NEG) Urine Bilirubin NEG (NEG) Urine Urobilinogen NEG (NEG) Urine Leukocyte Esterase NEG (NEG) Urine Opiates Screen NEG (NEG) Urine Methadone, Qualitative NEG (NEG) Urine Barbiturates NEG (NEG) Urine Phencyclidine (PCP) Level NEG (NEG) Ur Amphetamine/Methamphetamine NEG (NEG) MDMA (Ecstasy) Screen NEG (NEG) Urine Benzodiazepines Screen NEG (NEG) Urine Cocaine Metabolite NEG (NEG) Urine Marijuana (THC) NEG (NEG) White Blood Count 6.68 K/uL (4.8-10.8) Red Blood Count 5.19 M/uL (4.7-6.1) Hemoglobin 14.6 g/dL (14.0-18.0) Hematocrit 42.9 % (42-52) Mean Corpuscular Volume 82.7 fL (80-100) Mean Corpuscular Hemoglobin 28.1 pg (25-34) Mean Corpuscular Hemoglobin Concent 34.0 g/dl (32-36) Platelet Count 265 K/uL (130-400) Mean Platelet Volume 9.8 fL (7.4-10.4) Neutrophils (%) (Auto) 66.3 % Lymphocytes (%) (Auto) 27.1 % Monocytes (%) (Auto) 4.6 % Eosinophils (%) (Auto) 1.5 % Basophils (%) (Auto) 0.4 % Neutrophils # (Auto) 4.42 K/uL (1.4-6.5) Lymphocytes # (Auto) 1.81 K/uL (1.2-3.4) Monocytes # (Auto) 0.31 K/uL (0.11-0.59) Eosinophils # (Auto) 0.10 K/uL (0-0.5) Basophils # (Auto) 0.03 K/uL (0-0.2) RDW Standard Deviation 36.5 fL (36.4-46.3) RDW Coefficient of Variation 12.1 % (11.5-14.5) Immature Granulocyte % (Auto) 0.1 % Immature Granulocyte # (Auto) 0.01 K/uL (0.00-0.02) Anion Gap 5.0 mmol/L (3-11) Est Creatinine Clear Calc Drug Dose 95.2 ml/min Estimated GFR () 94.8 Estimated GFR (Non- 81.8 BUN/Creatinine Ratio 14.4 (10-20) Calcium Level 9.1 mg/dl (8.5-10.1) Total Bilirubin 0.9 mg/dl (0.2-1) Direct Bilirubin 0.2 mg/dl (0-0.2) Aspartate Amino Transf (AST/SGOT) 17 U/L (15-37) Alanine Aminotransferase (ALT/SGPT) 22 U/L (12-78) Alkaline Phosphatase 98 U/L (45-117) Total Protein 7.4 gm/dl (6.4-8.2) Albumin 4.1 gm/dl (3.4-5.0) Lipase 124 U/L (73-393) Salicylates Level < 1.7 mg/dl (2.8-20) Acetaminophen Level < 2 ug/ml (10-30) Ethyl Alcohol mg/dL < 3.0 mg/dl (0-3) Laboratory studies as stated above per my review. ED Course 1813: Past medical records reviewed. The patient was evaluated in room A5, and a complete history and physical examination were performed. 2007: The patient is medically cleared. 2303: The patient is resting comfortably and awaiting a bed, but there are no beds available. 0230: The patient was signed out to Dr. Deja Good at change of shift awaiting placement. Medical Decision Differential diagnoses include depression, suicidal ideations, electrolyte abnormality, metabolic abnormality, toxicological, trauma. This patient comes in as described above. He was placed in room A5. He has a history of depression and had a suicidal attempt last night where he tried to hang himself .he looks well at present and has no signs of trauma or any difficulty with breathing or evidence of neck trauma. He is cooperative. He has normal thought process at present. Multiple blood testing was obtained for medical clearance. He was reassessed frequently. He was evaluated by our mental health team. They do feel he meets criteria for admission however they were unable to place him. Apparently there are no psychiatric beds available at any other places at multiple hospitals. They have suspended the bed search. The patient is voluntary and is resting comfortably. He has taken his Lexapro already today and he does take it in the morning. He will be signed out at shift change to Dr. Good will follow up on the bed search Medication Reconcilliation Current Medication List: was personally reviewed by me Blood Pressure Screening Patient's blood pressure: Normal blood pressure Blood pressure disposition: Did not require urgent referral Impression Primary Impression: Depression Additional Impression: Suicide attempt Scribe Attestation The scribe's documentation has been prepared under my direction and personally reviewed by me in its entirety. I confirm that the note above accurately reflects all work, treatment, procedures, and medical decision making performed by me. Departure Information Dispostion Still a Patient Referrals No Doctor, Assigned (PCP) Patient Instructions My [facility] Problem Qualifiers
[2017-11-27 18:57] LABS: BASO % 0.4 %; BASO ABS # 0.03 K/uL (0-0.2); EOS % 1.5 %; HEMATOCRIT 42.9 % (42-52); HEMOGLOBIN 14.6 g/dL (14.0-18.0); IG# 0.01 K/uL (0.00-0.02); LYMPH % 27.1 %; LYMPH ABS # 1.81 K/uL (1.2-3.4); MEAN CELL VOLUME 82.7 fL (80-100); MEAN CORPUSCULAR HEMOGLOBIN 28.1 pg (25-34); MEAN PLATELET VOLUME 9.8 fL (7.4-10.4); MONO % 4.6 %; MONO ABS # 0.31 K/uL (0.11-0.59); NEUT % 66.3 %; NEUT ABS # 4.42 K/uL (1.4-6.5); PLATELET COUNT 265 K/uL (130-400); RED CELL DISTRIBUTION WIDTH CV 12.1 % (11.5-14.5); RED CELL DISTRIBUTION WIDTH SD 36.5 fL (36.4-46.3); WHITE BLOOD COUNT 6.68 K/uL (4.8-10.8)
[2017-11-27 19:17] LABS: ALBUMIN 4.1 gm/dl (3.4-5.0); TOTAL PROTEIN 7.4 gm/dl (6.4-8.2)
[2017-11-27] MEDS ORDERED: ESCI10TA17 PO (19:37)
[2017-11-27 19:44] LABS: CALCIUM 9.1 mg/dl (8.5-10.1); CREATININE 1.25 mg/dl (0.60-1.40); POTASSIUM 3.9 mmol/L (3.5-5.1)
[2017-11-28] MEDS ORDERED: ESCITALOPRAM OXALATE 10 MG TAB PO STA (06:18)
--- NOTE | 2017-11-28 07:25 | EMERGENCY ROOM VISIT NOTE ---
ED Visit Note First contact with patient: 03:00 I received this patient in signout at the change of shift from Dr. Lentz, pending mental health bed search. The patient is currently at 201 for suicidal thoughts. A bed search has been reinitiated this morning. Case has been signed out to Dr. Simmons pending disposition.
--- NOTE | 2017-11-28 08:30 | EMERGENCY ROOM VISIT NOTE ---
ED Visit Note First contact with patient: 08:29 The patient was taken in signout from Dr. Good at the change of shift. Please see that note for details. The patient was pending bed placement. Patient was evaluated and is doing relatively well. He is stable. He was accepted at [facility] for further management.
[2017-11-28 13:13] VITALS: BP 120/55; PULSE 65; TEMP 36.8; Ht 177.8 cm; Wt 69.4 kg
[2017-11-28] MEDS ORDERED: NURSING VERBAL MED ORDER ONE (14:00)
[2017-11-28] MEDS ORDERED: SODIUM CHLORIDE 0.65% NA SOLN 45 ML (OCEAN) PRN (14:15)
[2017-11-28] MEDS ORDERED: ALUMINUM/MAGNESIUM SUSP 30 ML UDC PO PRN (14:15)
[2017-11-28] MEDS ORDERED: ACETAMINOPHEN 325 MG TAB PO PRN (14:15)
[2017-11-28] MEDS ORDERED: MAGNESIUM HYDROXIDE SUSP 30 ML UDC PO PRN (14:15)
[2017-11-28] MEDS ORDERED: hydrOXYzine HCL 25 MG TAB PO PRN ×2 (14:15)
[2017-11-28] MEDS ORDERED: BISMUTH SUBSALICYLATE PER ML OMNICELL CHARGE PO PRN (14:15)
[2017-11-28 14:25] VITALS: O2SAT 98
[2017-11-29 07:05] VITALS: BP_SYST 95; BP_SYST 96; BP_DIAS 55; BP_DIAS 57; PULSE 69; PULSE 91; TEMP 36.4
[2017-11-29] MEDS ORDERED: ESCITALOPRAM OXALATE 10 MG TAB PO SCH (09:00)
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
[2017-11-30 06:52] VITALS: BP_SYST 103; BP_SYST 98; BP_DIAS 62; BP_DIAS 98; PULSE 68; PULSE 87; TEMP 36.5
--- NOTE | 2017-11-30 08:51 | Psychiatric Progress Notes ---
Progress Note Date of Service Nov 30, 2017. 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 Ty Barfield was admitted on a 201 voluntary commitment after his friend encouraged him to come to the ED. Patient was admitted from home. Chief Complaint "I feel like I should be taking it (suicide attempt) more seriously, but I don't ". Subjective Patient was seen & assessed interval progress reviewed with Nursing. Staff report he continues to refuse contact with his parents, but did agree to a meeting with his friends. He has been processing his suicide attempt, admitting that it was impulsive and extremely serious. He said the rope malfunctioned or he would have killed himself. He says he knows he needs to work on his impulsiveness and part of the solution to that is to reach out to his friends and tell them how he is feeling at any given time. His outpatient psychiatric PA , Shreya Ramirez, spoke with her therapist, Sukumar Corley, who reported the the patient has been struggling with his arranged marriage, reporting feelings of "detachment," and feeling that he doesn't fit into the culture here. On my assessment today, he says he knows his suicide attempt was serious, but he is not taking it seriously. Read his suicide note, which was a long, 4 page letter written to friends and family in a very angry tone, with derogatory statements about himself, calling himself a liar and a cheat, saying he didn't want a , and they deserved a better friend/son, etc. He is not able to describe how he came to be in that state of mind, saying it was "a pretty good day, was out with friends, just came home and felt like killing myself, so that's what I did." He says he was hanging out with friends at a bar, and "suddenly felt like I needed to leave," so he left alone. Denies that he was drinking or under the influence of anything, and says he often goes out to bars with friends and usually enjoys it. On further questioning, he says he had asked a female friend about an incident when she made out with another girl, and she told him she had asked him not to bring it up again, and he "felt bad, like a creep." He thinks this led to him "thinking about other times I was a bad relative, friend, brother." He gives examples of not standing up for his brother at times, being unfair to his siblings, not believing them, sometimes yelling at his parents and "hurting them with words," and sometimes "picking at friend's insecurities. " With specific questioning about issues he's been working on in therapy, he admits to feeling "very insecure around girls, I don't like bringing it up." He did not bring up his arranged marriage until asked, but then admits it has been a stress. He states his relatives find a woman and arrange for them to meet, but he has met with multiple different women when at home, but "I've never made it past the first one, always been rejected, except for the last one," whom he met with twice. He grandmother told him that if this one didn't work, the family was out of options. He has been worrying about this, that he will be "single for a long time, she's pretty much my last option for a traditional marriage." He would like to feel confident enough to start dating and not pursue the traditional marriage, but feels insecure about women. He also worries that if he starts dating, he will be a hypocrite, because he still expects his siblings to have a traditional arranged marriage. His father has told him he can do whatever he wants, "just don't bring it back home," but his mother told him he'd "probably burn in hell, but that's between you and God." He thinks most of his stress is related to the relationship issue, as he fears that his parents will be disappointed if the arranged marriage doesn't work, and he feels like a hypocrite if he doesn't do it, as he still expects his siblings to do it. Also feels that whenever things do not go well for him, he immediately starts thinking that this is why none of the women he has met with wanted to continue a relationship with him, which leads to him feeling rejected again. Explored what he'd like to tell his parents, as he states he feels father dismisses things he says that he doesn't like, and says he doesn't want to disappoint them, worries they'll be worried and disappointed if they know he' s back in the hospital. Initially states he plans to tell them once he's discharged, then says he knows he should call them now and discuss his concerns openly. Also notes he is "having a crisis of thanh," as he is questioning his Rastafari thanh and isn't sure how to talk to his family about it. Sleep Information Total Hours of Sleep: 6.00 Meal Information Percent of Breakfast Consumed: 100 Percent of Lunch Consumed: 100 Percent of Dinner Consumed: 100 Mental Status Exam During interview pt is: alert and oriented, cooperative Appearance: appropriately dressed, appropriately groomed Eye contact is: good Motor behavior is: steady gait & station, no abnormal motor movements Speech: normal in rate, rhythm & volume Affect: anxious Mood is: other ("okay") Thought process: goal directed Thought content: cognitive distortions Suicidal thought are: denied (currently; admitted following serious attempt by hanging) Homicidal thoughts are: denied Hallucinations: denies auditory, denies visual Cognition: memory grossly intact, attention grossly intact, language grossly intact Intelligence estimated to be: consistent with level of education Insight: impaired Judgement: impaired Impression 22-year-old male with recurrent depression and a serious suicide attempt by hanging. He is opening up more, has been able to process some of his thoughts and feelings prior to his suicide attempt, and is willing to meet with roommates and possibly his parents to address these. His Lexapro has been increased to 20mg daily, and care coordinated with his outpatient psychiatric PA and therapist. Will continue to monitor response to medications as necessary. He has a family meeting with his roommates today, and we are encouraging a meeting with his parents as well. He requires inpatient mental health treatment due to the severity of his depressive symptoms, the seriousness and impulsiveness of his suicide attempt, which he did not initially disclose to anyone, and need for ongoing exploration of these factors , development of healthy coping skills, and an adequate discharge safety plan. He remains at high risk of self-harm if discharged prematurely. Plan (1) Suicide attempt 11/29 - The patient is admitted to [facility] ([facility] mental health unit) on q 15 min checks (behavioral with suicide precautions) for safety. The patient will participate in group, recreational and milieu therapies and will be offered additional individual and family sessions as clinically appropriate. 11/30 -Continue to work on healthy coping skills and a discharge safety plan. Encourage involvement of his outpatient supports, including roommates and parents. Care has been coordinated with his outpatient mental health providers. (2) Major depression, recurrent 11/29 - Lexapro increased to 20mg qAM. - Will require processing of suicide attempt and contents of suicide note as his reports of improvement are not consistent with his suicide attempt - Encourage participation in group programming including recreational therapy as well as individual and group therapies - Encourage family session with identified supports; encourage patient to contact and discuss recent events with parents if willing - Coordination of care with outpatient providers - Communication with [employer] as needed 11/30 -Patient able to process his state of mind at the time of his suicide attempt and the factors that contributed to this. He would benefit from ongoing discussion about this, identification of healthy coping skills and supports. -Family meeting with roommates today, and willing to consider a meeting with his parents by phone. Discharge / Aftercare Planning Primary Care Physician: Name: None Psychiatrist: [facility]rey[facility] Ramirez [facility] Therapist: Name: Eduard Corley [facility] [place] [employer] Officer: Name: None Visit Code E&M Code: 61931 Inventory Assets Strengths: intelligence, support of friends Needs: processing of attempt, communication with parents, mitigation of risk factors Risk Factors Assessment Male: Yes : No /single/: Yes Higher / Fall in social status: No Health problems: No Mental Health Diagnoses: Yes Substance use disorders: No Previous attempt: Yes Previous attempt;highly lethal: Yes Previous attempt; didn't tell: Yes Family history of suicide: No Previous psychiatric stay: Yes (May 2017) Hopelessness: No Smoker: No Protective Factors Assessment Bahai beliefs: Yes : No Responsible for young children: No Employed: No Stable relationships: No Data Vital Signs Last 24 Hrs: Date Time Temp Pulse Resp B/P (MAP) Pulse Ox O2 Delivery O2 Flow Rate FiO2 11/30/17 06:52 36.5 68 16 103/98 87 98/62 Meds Administered Last 24 Hrs: Meds Administered (Past 24Hrs) Medications (Trade) Dose Ordered Sig/Feli Route Start Time Stop Time Status Last Admin Dose Admin Escitalopram Oxalate (Lexapro Tab) 15 mg DAILY PO 11/29/17 09:00 11/29/17 10:15 DC 11/29/17 08:58 15 MG
[2017-11-30] MEDS: ESCITALOPRAM OXALATE 10 MG TAB PO SCH (09:32)
[2017-12-01 06:53] VITALS: BP_SYST 94; BP_SYST 97; BP_DIAS 59; BP_DIAS 60; PULSE 76; PULSE 83; TEMP 36.7
[2017-12-01] MEDS: ESCITALOPRAM OXALATE 10 MG TAB PO SCH (09:18)
--- NOTE | 2017-12-01 12:30 | Psychiatric Progress Notes ---
Progress Note Date of Service Dec 01, 2017. 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 Ty Barfield was admitted on a 201 voluntary commitment after his friend encouraged him to come to the ED. Patient was admitted from home. Chief Complaint "I had a bad couple of hours, but better now". Subjective Patient was seen & assessed interval progress reviewed with Treatment Team. Staff report the patient had a phone meeting with his mother and the social sciences professor yesterday, during which he disclosed his suicide attempt. His mother processed this with him, and he expressed relief at being able to tell her. She also talked about his sense that he is having a anglican crisis, and has been feeling "unwanted and alone." He disclosed that he was afraid to tell his father about his ongoing struggles, as he feared he would pull him out of school. His mother encouraged him to keep this information from his father until this semester was completed. They also discussed his feelings about dating and the cultural differences he is dealing with. Last evening, he submitted a 72 hour notice to withdraw from treatment, stating he was concerned about missing too much school and would like to be able to be discharged by . He stated that although he was relieved after talking to his mother, he was still very anxious, worrying about his romantic situation, and his conflicted anglican views. He also talked about enjoying using drugs and drinking alcohol, but then feeling guilty about it. Interestingly, he has previously denied all substance abuse when asked during his 2 hospitalizations here. On my assessment today, he states he had a period of low mood this morning, was feeling more negative, triggered by thinking about his interaction with his female friend where "I was a creep," as discussed yesterday. Is able to talk about ways to cope, like distraction (reading his book), and self talk, challenging his negative thoughts. He is noticing black and white thinking and trying to correct that. Discussed his report of narcissistic personality disorder diagnosis, which he says he was given at [facility]. Says he has low self esteem, but often thinks everything revolves around him, for example that if people are laughing, there laughing at him. He says he was surprised when he saw this diagnosis on a letter that [facility] provided for his medical withdrawal. We reviewed the criteria for it today, and he identifies with 3 of the 9 criteria strongly (preoccupied with fantasies of unlimited power/success/ideal love, requires excessive admiration, and is envious of others), and 2 of them weakly (sometimes exploits others, and sometimes lacks empathy). States he had a "flashback" of his suicide attempt last evening when talking with staff, and remembered that he had researched on the Internet ways to commit suicide," settled on hanging." He says this made him realize that his period of severe depression and suicidality had gone on for longer than he had initially thought. Processed his emotions when he discusses his suicide attempt, and how he was feeling at the time vs now. Also discussed his 72 hour notice; he states he does not yet feel ready to leave, but wanted to submitted it in case he wanted to leave in 3 days, noting that he will rescind it if he does not feel ready, and his ultimate goal is to be discharged by Wednesday. Sleep Information Total Hours of Sleep: 6.00 Meal Information Percent of Breakfast Consumed: 100 Percent of Lunch Consumed: 100 Percent of Dinner Consumed: 100 Mental Status Exam During interview pt is: alert and oriented, cooperative Appearance: appropriately dressed, appropriately groomed Eye contact is: good Motor behavior is: steady gait & station, no abnormal motor movements Speech: normal in rate, rhythm & volume Affect: blunted, anxious Mood is: other ("Was down for a while this morning") Thought process: goal directed Thought content: cognitive distortions Suicidal thought are: denied (currently; admitted following serious attempt by hanging) Homicidal thoughts are: denied Hallucinations: denies auditory, denies visual Cognition: memory grossly intact, attention grossly intact, language grossly intact Intelligence estimated to be: consistent with level of education Insight: impaired Judgement: impaired Impression 22-year-old male with recurrent depression and a serious suicide attempt by hanging. He is opening up more, processing his stressors and suicide attempt, which has been challenging for him. His Lexapro has been increased to 20mg daily, and care coordinated with his outpatient psychiatric PA and therapist. His roommate was contacted by the social sciences professor and did not know much about with the patient had been going through, so a meeting was instead held with his mother by phone, who was supportive. He remains at high risk for suicide, and requires inpatient mental health treatment due to the severity of his depressive symptoms, the seriousness and impulsiveness of his suicide attempt, which he did not initially disclose to anyone, and need for ongoing exploration of these factors, development of healthy coping skills, and an adequate discharge safety plan. Plan (1) Suicide attempt 11/29 - The patient is admitted to [facility] ([facility] mental health unit) on q 15 min checks (behavioral with suicide precautions) for safety. The patient will participate in group, recreational and milieu therapies and will be offered additional individual and family sessions as clinically appropriate. 11/30 -Continue to work on healthy coping skills and a discharge safety plan. Encourage involvement of his outpatient supports, including roommates and parents. Care has been coordinated with his outpatient mental health providers. (2) Major depression, recurrent 11/29 - Lexapro increased to 20mg qAM. - Will require processing of suicide attempt and contents of suicide note as his reports of improvement are not consistent with his suicide attempt - Encourage participation in group programming including recreational therapy as well as individual and group therapies - Encourage family session with identified supports; encourage patient to contact and discuss recent events with parents if willing - Coordination of care with outpatient providers - Communication with [employer] as needed 11/30 -Patient able to process his state of mind at the time of his suicide attempt and the factors that contributed to this. He would benefit from ongoing discussion about this, identification of healthy coping skills and supports. -Family meeting with roommates today, and willing to consider a meeting with his parents by phone. 12/01 -Family meeting held with mother by phone yesterday, who was supportive. -Continue escitalopram 20 mg daily. Continue participation in groups and therapy, process suicide attempt, and work on healthy coping skills. -Patient submitted a 72 hour notice, but states he is not yet ready for discharge, and is willing to rescind that if ongoing stay is recommended. Discharge / Aftercare Planning Primary Care Physician: Name: None Psychiatrist: Name: OBIE Robles -[facility] Date of Appointment: Dec 09, 2017 Time of Appointment: 8:50 am Appointment Notes: [address], [place] [address] Therapist: Name: Eduard Corley - [facility] Date of Appointment: Dec 07, 2017 Time of Appointment: 2:00 pm Appointment Notes: [address], [place] [address] Silk Blocker: Name: None Visit Code E&M Code: 45428 Inventory Assets Strengths: intelligence, support of friends Needs: processing of attempt, communication with parents, mitigation of risk factors Risk Factors Assessment Male: Yes : No /single/: Yes Higher / Fall in social status: No Health problems: No Mental Health Diagnoses: Yes Substance use disorders: No Previous attempt: Yes Previous attempt;highly lethal: Yes Previous attempt; didn't tell: Yes Family history of suicide: No Previous psychiatric stay: Yes (May 2017) Hopelessness: No Smoker: No Protective Factors Assessment Orthodoxy beliefs: Yes : No Responsible for young children: No Employed: No Stable relationships: No Data Vital Signs Last 24 Hrs: Date Time Temp Pulse Resp B/P (MAP) Pulse Ox O2 Delivery O2 Flow Rate FiO2 12/01/17 06:53 36.7 76 16 97/59 83 94/60 Meds Administered Last 24 Hrs: Meds Administered (Past 24Hrs) Medications (Trade) Dose Ordered Sig/Feli Route Start Time Stop Time Status Last Admin Dose Admin Escitalopram Oxalate (Lexapro Tab) 20 mg DAILY PO 11/30/17 09:00 12/29/17 08:59 12/01/17 09:18 20 MG
[2017-12-02 06:41] VITALS: BP_SYST 107; BP_SYST 98; BP_DIAS 60; BP_DIAS 68; PULSE 71; PULSE 90; TEMP 36.4
[2017-12-02] MEDS: ESCITALOPRAM OXALATE 10 MG TAB PO SCH (09:17)
--- NOTE | 2017-12-02 14:05 | Psychiatric Progress Notes ---
Progress Note Date of Service Dec 02, 2017. 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 Ty Barfield was admitted on a 201 voluntary commitment after his friend encouraged him to come to the ED. Patient was admitted from home. Chief Complaint "OK". Subjective Patient was seen & assessed interval progress reviewed with Treatment Team. The patient says that he is doing OK today. His 72 hr notice is still in, but says that he plans to revoke it, not feeling that he is ready to go home. He planned to submit another one, but I explained the purpose of the notice and our desire to help him mediate his risk factors. He admits that he worries about the times when he is impulsive and acts without thinking. He says that the first thing he recognizes when things aren't going well is that he makes a lot of negative self statements, worrying he has offended someone and then berates himself, saying he isn't worthy of getting help. He is working on trying to be more willing to call friends when he is feeling that way, and to pause/reality test his thinking before acting on it. He also plans to keep his written safety plan visible in his room for easy access. His room is rather bare and he plans to put up some decorations and pictures of his family to remind him that he is loved. He admits to having some fleeting SI yesterday, but none so far today. Review of Systems Constitutional: No fever, No chills, No sweats, No weight loss, No weakness, No fatigue, No problem reported ENT: No hearing loss, No unusual epistaxis, No nasal symptoms, No sore throat, No tinnitus, No dental problems, No trouble swallowing, No problem reported Respiratory: No cough, No sputum, No wheezing, No shortness of breath, No dyspnea on exertion, No dyspnea at rest, No hemoptysis, No problem reported Cardiovascular: No chest pain, No orthopnea, No PND, No edema, No claudication , No palpitations, No problem reported Abdomen: No pain, No nausea, No vomiting, No diarrhea, No constipation, No GI bleeding, No problem reported Musculoskeletal: No joint pain, No muscle pain, No swelling, No calf pain, No problem reported Neurologic: No memory loss, No paralysis, No weakness, No numbness/tingling, No vertigo, No balance problems, No problem reported Psychiatric: + depression symptoms (with SI) Integumentary: No rash, No itch, No new/changing skin lesions, No color change , No bleeding, No problem reported Sleep Information Total Hours of Sleep: 6.00 Meal Information Percent of Breakfast Consumed: 100 Percent of Lunch Consumed: 100 Percent of Dinner Consumed: 100 Mental Status Exam During interview pt is: alert and oriented, cooperative Appearance: appropriately dressed, appropriately groomed Eye contact is: good Motor behavior is: steady gait & station, no abnormal motor movements Speech: normal in rate, rhythm & volume Affect: blunted, anxious Mood is: other ("OK") Thought process: goal directed Thought content: cognitive distortions Suicidal thought are: denied (currently; admitted following serious attempt by hanging) Homicidal thoughts are: denied Hallucinations: denies auditory, denies visual Cognition: memory grossly intact, attention grossly intact, language grossly intact Intelligence estimated to be: consistent with level of education Insight: impaired Judgement: impaired Impression Adjusting to the structure and support of the milieu. Says that he will revoke his 72 hr notice, which is recommended given the severity of his suicide attempt. Will continue to encourage him to process the attempt, and develop a robust safety plan for the future. Continue current meds. Plan (1) Suicide attempt 11/29 - The patient is admitted to [facility] on q 15 min checks (behavioral with suicide precautions) for safety. The patient will participate in group, recreational and milieu therapies and will be offered additional individual and family sessions as clinically appropriate. 11/30 -Continue to work on healthy coping skills and a discharge safety plan. Encourage involvement of his outpatient supports, including roommates and parents. Care has been coordinated with his outpatient mental health providers. (2) Major depression, recurrent 11/29 - Lexapro increased to 20mg qAM. - Will require processing of suicide attempt and contents of suicide note as his reports of improvement are not consistent with his suicide attempt - Encourage participation in group programming including recreational therapy as well as individual and group therapies - Encourage family session with identified supports; encourage patient to contact and discuss recent events with parents if willing - Coordination of care with outpatient providers - Communication with [employer] as needed 11/30 -Patient able to process his state of mind at the time of his suicide attempt and the factors that contributed to this. He would benefit from ongoing discussion about this, identification of healthy coping skills and supports. -Family meeting with roommates today, and willing to consider a meeting with his parents by phone. 12/01 -Family meeting held with mother by phone yesterday, who was supportive. -Continue escitalopram 20 mg daily. Continue participation in groups and therapy, process suicide attempt, and work on healthy coping skills. -Patient submitted a 72 hour notice, but states he is not yet ready for discharge, and is willing to rescind that if ongoing stay is recommended. 12/02 - Continue current meds - Focus on safety planning Discharge / Aftercare Planning Primary Care Physician: Name: None Psychiatrist: Name: OBIE Robles [facility] Date of Appointment: Dec 09, 2017 Time of Appointment: 8:50 am Appointment Notes: [address], [place] [address] Therapist: Name: Eduard Corley [employer] [facility] Date of Appointment: Dec 07, 2017 Time of Appointment: 2:00 pm Appointment Notes: [address], [place] [address] [employer] Engineer: Name: None Other: Name of Appointment #1: [facility] Date of Appointment #1: Dec 07, 2017 Time of Appointment #1: 4:00 pm Appointment #1 Notes: [address] [facility] [address] Visit Code E&M Code: 80334 Inventory Assets Strengths: intelligence, support of friends Needs: processing of attempt, communication with parents, mitigation of risk factors Risk Factors Assessment Male: Yes : No /single/: Yes Higher / Fall in social status: No Health problems: No Mental Health Diagnoses: Yes Substance use disorders: No Previous attempt: Yes Previous attempt;highly lethal: Yes Previous attempt; didn't tell: Yes Family history of suicide: No Previous psychiatric stay: Yes (May 2017) Hopelessness: No Smoker: No Protective Factors Assessment Anabaptist beliefs: Yes : No Responsible for young children: No Employed: No Stable relationships: No Data Vital Signs Last 24 Hrs: Date Time Temp Pulse Resp B/P (MAP) Pulse Ox O2 Delivery O2 Flow Rate FiO2 12/02/17 06:41 36.4 71 16 98/60 90 107/68 Meds Administered Last 24 Hrs: Current Inpatient Medications Medications (Trade) Dose Ordered Sig/Feli Route Start Time Stop Time Status Last Admin Dose Admin Acetaminophen (Tylenol Tab) 650 mg Q4H PRN PO 11/28/17 14:15 12/28/17 14:14 Al Hydroxide/Mg Hydroxide (Maalox Susp) 30 ml Q4H PRN PO 11/28/17 14:15 12/28/17 14:14 Bismuth Subsalicylate (Kaopectate Liqd) 15 ml DAILY PRN PO 11/28/17 14:15 12/28/17 14:14 Magnesium Hydroxide (Milk Of Magnesia Susp) 30 ml DAILY PRN PO 11/28/17 14:15 12/28/17 14:14 Sodium Chloride (Convoy Nasal [place]) PRN PRN NA 11/28/17 14:15 12/28/17 14:14 Hydroxyzine HCl (Vistaril Tab) 50 mg HSZ PRN PO 11/28/17 14:15 12/28/17 14:14 Hydroxyzine HCl (Vistaril Tab) 25 mg Q4H PRN PO 11/28/17 14:15 12/28/17 14:14 Escitalopram Oxalate (Lexapro Tab) 20 mg DAILY PO 11/30/17 09:00 12/29/17 08:59 12/02/17 09:17 20 MG Lab Results Last 24 Hrs: 11/27/17 18:44 Red Blood Count 5.19, Mean Corpuscular Volume 82.7, Mean Corpuscular Hemoglobin 28.1, Mean Corpuscular Hemoglobin Concent 34.0, Mean Platelet Volume 9.8, Neutrophils (%) (Auto) 66.3, Lymphocytes (%) (Auto) 27.1, Monocytes (%) (Auto) 4.6, Eosinophils (%) (Auto) 1.5, Basophils (%) (Auto) 0.4, Neutrophils # (Auto) 4.42, Lymphocytes # (Auto) 1.81, Monocytes # (Auto) 0.31, Eosinophils # (Auto) 0.10, Basophils # (Auto) 0.03 11/27/17 18:44 Test 11/27/17 18:18 11/27/17 18:44 Urine Color DK YELLOW Urine Appearance CLEAR (CLEAR) Urine pH 5.5 (4.5-7.5) Urine Specific [place] 1.026 (1.000-1.030) Urine Protein NEG (NEG) Urine Glucose (UA) NEG (NEG) Urine Ketones NEG (NEG) Urine Occult Blood NEG (NEG) Urine Nitrite NEG (NEG) Urine Bilirubin NEG (NEG) Urine Urobilinogen NEG (NEG) Urine Leukocyte Esterase NEG (NEG) Urine Opiates Screen NEG (NEG) Urine Methadone, Qualitative NEG (NEG) Urine Barbiturates NEG (NEG) Urine Phencyclidine (PCP) Level NEG (NEG) Ur Amphetamine/Methamphetamine NEG (NEG) MDMA (Ecstasy) Screen NEG (NEG) Urine Benzodiazepines Screen NEG (NEG) Urine Cocaine Metabolite NEG (NEG) Urine Marijuana (THC) NEG (NEG) White Blood Count 6.68 K/uL (4.8-10.8) Red Blood Count 5.19 M/uL (4.7-6.1) Hemoglobin 14.6 g/dL (14.0-18.0) Hematocrit 42.9 % (42-52) Mean Corpuscular Volume 82.7 fL (80-100) Mean Corpuscular Hemoglobin 28.1 pg (25-34) Mean Corpuscular Hemoglobin Concent 34.0 g/dl (32-36) Platelet Count 265 K/uL (130-400) Mean Platelet Volume 9.8 fL (7.4-10.4) Neutrophils (%) (Auto) 66.3 % Lymphocytes (%) (Auto) 27.1 % Monocytes (%) (Auto) 4.6 % Eosinophils (%) (Auto) 1.5 % Basophils (%) (Auto) 0.4 % Neutrophils # (Auto) 4.42 K/uL (1.4-6.5) Lymphocytes # (Auto) 1.81 K/uL (1.2-3.4) Monocytes # (Auto) 0.31 K/uL (0.11-0.59) Eosinophils # (Auto) 0.10 K/uL (0-0.5) Basophils # (Auto) 0.03 K/uL (0-0.2) RDW Standard Deviation 36.5 fL (36.4-46.3) RDW Coefficient of Variation 12.1 % (11.5-14.5) Immature Granulocyte % (Auto) 0.1 % Immature Granulocyte # (Auto) 0.01 K/uL (0.00-0.02) Anion Gap 5.0 mmol/L (3-11) Est Creatinine Clear Calc Drug Dose 95.2 ml/min Estimated GFR () 94.8 Estimated GFR (Non- 81.8 BUN/Creatinine Ratio 14.4 (10-20) Calcium Level 9.1 mg/dl (8.5-10.1) Total Bilirubin 0.9 mg/dl (0.2-1) Direct Bilirubin 0.2 mg/dl (0-0.2) Aspartate Amino Transf (AST/SGOT) 17 U/L (15-37) Alanine Aminotransferase (ALT/SGPT) 22 U/L (12-78) Alkaline Phosphatase 98 U/L (45-117) Total Protein 7.4 gm/dl (6.4-8.2) Albumin 4.1 gm/dl (3.4-5.0) Lipase 124 U/L (73-393) Thyroid Stimulating Hormone (TSH) 1.480 uIu/ml (0.300-4.500) Salicylates Level < 1.7 mg/dl (2.8-20) Acetaminophen Level < 2 ug/ml (10-30) Ethyl Alcohol mg/dL < 3.0 mg/dl (0-3)
[2017-12-03 06:29] VITALS: BP_SYST 100; BP_SYST 104; BP_DIAS 64; BP_DIAS 65; PULSE 63; PULSE 82; TEMP 36.4
[2017-12-03] MEDS: ESCITALOPRAM OXALATE 10 MG TAB PO SCH (09:11)
--- NOTE | 2017-12-03 10:48 | Psychiatric Progress Notes ---
Progress Note Date of Service Dec 03, 2017. 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 Ty Barfield was admitted on a 201 voluntary commitment after his friend encouraged him to come to the ED. Patient was admitted from home. Chief Complaint "I've gotten a lot better about being honest with myself about my issues". Subjective Patient was seen & assessed interval progress reviewed with Treatment Team. Staff reports the patient had a phone call with his mother yesterday which reportedly went well. Pt is planning to speak with his father via phone today. Pt is continuing to deny SI and has completed a safety plan. Pt was seen today to assess progress since admission. Pt states he has done a lot of processing while on the unit. He states, "I realized I have symptoms, but then I have my core issues, and everything leads back to that." Pt states he has struggled with "things being black and white - I'm either achieving or I'm not good enough". Pt states he spoke with his mother who was helpful at reassuring this dialogue. Pt states he feels comfortable continuing the "challenge of cognitive distortions" with his outpatient therapist, and is planning to continue to do this during his remaining time on the unit. Pt denies issues with increased dose of Lexapro, but is unsure if he has noticed any difference. Safety plan reviewed including specific plans to prevent impulsive decisions based on mood in the future. Pt denies SI or other psychiatric concerns today. Review of Systems Psych: denies symptoms other than stated above Constitutional: denied Cardiovascular: denied GI: denied Neurologic: denied Remainder of 10 body systems also reviewed and denied other than noted above. Sleep Information Total Hours of Sleep: 7.00 Meal Information Percent of Breakfast Consumed: 100 Percent of Lunch Consumed: 100 Mental Status Exam During interview pt is: alert and oriented, cooperative Appearance: appropriately dressed, appropriately groomed Eye contact is: good Motor behavior is: steady gait & station, no abnormal motor movements Speech: normal in rate, rhythm & volume Affect: blunted Mood is: other ("better") Thought process: goal directed, clear, coherent Thought content: cognitive distortions (recognizes - reports plans to continue to challenge) Suicidal thought are: denied (currently; admitted following serious attempt by hanging) Homicidal thoughts are: denied Hallucinations: denies auditory, denies visual Cognition: memory grossly intact, attention grossly intact, language grossly intact Intelligence estimated to be: consistent with level of education Insight: fair Judgement: fair Impression Pt shares with this provider specific ideas related to his safety plan which he will continue to work on. Pt would like to continue to challenge cognitive distortions and also plans to "fill my room with pictures of family and friends - that way I'll think about them before I do something stupid, not while I'm already in the process." Pt encouraged in his plans as well as encouraged to continue this honesty with his outpatient providers. Pt admits to this provider , "I lied to my therapist - I just told him I wrote a note, but I didn't tell him I had attempted anything." Pt appears remorseful for this. Pt requires ongoing inpatient mental health treatment due to impulsivity and severity of suicide attempt. Will continue safety planning and challenging cognitive distortions until discharge is appropriate - likely in the next day or two. Plan (1) Suicide attempt 11/29 - The patient is admitted to [facility] ([facility]) on q 15 min checks (behavioral with suicide precautions) for safety. The patient will participate in group, recreational and milieu therapies and will be offered additional individual and family sessions as clinically appropriate. 11/30 -Continue to work on healthy coping skills and a discharge safety plan. Encourage involvement of his outpatient supports, including roommates and parents. Care has been coordinated with his outpatient mental health providers. 12/03 - Continue to encourage healthy processing of core stressors. Shared safety plan considerations. Encourage honesty with outpatient providers and other supports. (2) Major depression, recurrent 11/29 - Lexapro increased to 20mg qAM. - Will require processing of suicide attempt and contents of suicide note as his reports of improvement are not consistent with his suicide attempt - Encourage participation in group programming including recreational therapy as well as individual and group therapies - Encourage family session with identified supports; encourage patient to contact and discuss recent events with parents if willing - Coordination of care with outpatient providers - Communication with [employer] as needed 11/30 -Patient able to process his state of mind at the time of his suicide attempt and the factors that contributed to this. He would benefit from ongoing discussion about this, identification of healthy coping skills and supports. -Family meeting with roommates today, and willing to consider a meeting with his parents by phone. 12/01 -Family meeting held with mother by phone yesterday, who was supportive. -Continue escitalopram 20 mg daily. Continue participation in groups and therapy, process suicide attempt, and work on healthy coping skills. -Patient submitted a 72 hour notice, but states he is not yet ready for discharge, and is willing to rescind that if ongoing stay is recommended. 12/02 - Continue current meds - Focus on safety planning 12/03 - Continue current medications - Encourage honesty with family and other supports - Focus on safety planning - especially given impulsivity of patient's attempt - Likely discharge tomorrow if maintaining current stability Discharge / Aftercare Planning Primary Care Physician: Name: None Psychiatrist: Name: Shreya Ramirez [facility] Date of Appointment: Dec 09, 2017 Time of Appointment: 8:50 am Appointment Notes: [address], [place] [address] Therapist: Name: Eduard Corley [employer] Date of Appointment: Dec 07, 2017 Time of Appointment: 2:00 pm Appointment Notes: [address], [place] [address] Stud Driver: Name: None Other: Name of Appointment #1: [facility] Date of Appointment #1: Dec 07, 2017 Time of Appointment #1: 4:00 pm Appointment #1 Notes: [address] [facility] [address] Visit Code E&M Code: 08936 Inventory Assets Strengths: intelligence, support of friends Needs: processing of attempt, communication with parents, mitigation of risk factors Risk Factors Assessment Male: Yes : No /single/: Yes Higher / Fall in social status: No Health problems: No Mental Health Diagnoses: Yes Substance use disorders: No Previous attempt: Yes Previous attempt;highly lethal: Yes Previous attempt; didn't tell: Yes Family history of suicide: No Previous psychiatric stay: Yes (May 2017) Hopelessness: No Smoker: No Protective Factors Assessment Jain beliefs: Yes : No Responsible for young children: No Employed: No Stable relationships: No Data Vital Signs Last 24 Hrs: Date Time Temp Pulse Resp B/P (MAP) Pulse Ox O2 Delivery O2 Flow Rate FiO2 12/03/17 06:29 36.4 63 16 104/64 82 100/65
[2017-12-04 06:54] VITALS: BP_SYST 100; BP_SYST 99; BP_DIAS 63; BP_DIAS 64; PULSE 64; PULSE 82; TEMP 36.3
[2017-12-04] MEDS: ESCITALOPRAM OXALATE 10 MG TAB PO SCH (09:14)
[2017-12-04] MEDS ORDERED: ESCI10TA17 PO (09:17)
--- NOTE | 2017-12-04 09:32 | Discharge Instructions ---
Discharge Information Report Includes Report will include the: Discharge Instructions & Summary Admission Admission Date / Time: Nov 28, 2017 at 14:02 Reason for Admission: Major Depression Recurrent Without Psychosis Discharge Discharge Diagnosis / Problem: Major Depressive Disorder Condition at Discharge: Good Discharge Goals Goal(s): Improve function, Increase independence, Learn about illness, Therapeutic intervention, Prevent Disease Progression Activity Recommendations Activity Limitations: resume your previous activity . Instructions / Follow-Up Instructions / Follow-Up . SPECIAL CARE INSTRUCTIONS: 1. Follow through with your scheduled aftercare appointments. If unable to keep an appointment, please call to reschedule. 2. Take your medication only as prescribed. Medication should not be changed or stopped without the approval of your doctor. In the event of worsening symptoms or concerns about side effects, contact your doctor immediately. 3. Utilize new healthy coping skills, anger management skills, and stress management skills learned during your hospitalization. Journal feelings and process them with a support person. Identify stressors or situations that may result in relapse, deterioration or inappropriate behaviors and develop a plan to deal with those issues. 4. If your coping skills are ineffective and you are in crisis, contact your outpatient providers for direction. If unable to reach your providers, please call the CAN HELP LINE AT or go to the closest Emergency Room. 5. Avoid alcohol and un-prescribed drugs. 6. You have been provided with the Mental Health Advance Directives Pamphlet for your review. AFTERCARE APPOINTMENTS: * Please call your insurance company prior to your scheduled appointment to confirm your aftercare providers are covered. Take your insurance information to your appointments. . Discharge / Aftercare Planning Primary Care Physician: Name: None, You can access [facility] if you need services Appointment Notes: As needed Psychiatrist: Name: OBIE Robles Idiro Date of Appointment: Dec 09, 2017 Time of Appointment: 8:50 am Appointment Notes: [address], [address] [place] [address] Therapist: Name Of Therapist: Eduard Fuller Slice Date of Appointment: Dec 07, 2017 Time of Appointment: 2:00 pm Appointment Comments: [address], [place] [address] Immunopathologist: Name: None Other: Name of Appointment #1: [facility] Date of Appointment #1: Dec 07, 2017 Time of Appointment #1: 4:00 pm Appointment #1 Notes: [address] [place] [id number] . Follow-Up Care Plan for Follow-Up Care: Pt's aftercare was reviewed and updated during his admission to allow for timely followup with psychiatric providers following discharge. Pt will be returning to he current psychiatrist for management of medications and will be seeing his current therapist for ongoing treatment. Current Hospital Diet Patient's current hospital diet: Regular Diet, Kosher Diet Discharge Diet Recommended Diet: Regular Diet Procedures Procedures Performed: No Pending Studies Pending Studies at Discharge: No Medical Emergencies . Who to Call and When: Medical Emergencies: For questions or emergencies related to your hospital stay, please contact the Inpatient Behavioral Health Unit at [phone]. A data security administrator is on-call 15/03 for the Behavioral Health Unit for emergencies At any time you feel your situation is an emergency, you may also call 911 immediately. . Non-Emergent Contact Non-Emergency issues call your: Primary Care Provider, Psychiatrist, Therapist Advance Directives Do You Have an Existing Mental: No Existing Living Will: No Existing Power of Pediatric Audiologist: No Advance Directives Info Given: To Pt/S.O. Advance Directives Reason: Declines as Mental Health Visit. Discharge Summary Admission HPI Per the Admitting provider: 22-year-old male originally from [facility] known to the unit from a prior hospitalization in May 2017; as well as from following with this provider as an outpatient. Pt was brought to the ED by friends after his disclosed a suicide attempt which occurred on 11/26/2017. Pt states he had not been feeling particularly low, but had difficulty falling asleep the night of 11/25/2017. He states that as he laid awake, he had made an impulsive decision to end his life. Pt states he took a moment prior to his attempt to write a letter, "not to explain anything, but to make it easier for people to deal with." Pt wrote a lengthy note, a copy of which can be found in the patient's chart. To summarize: addressing his audience as "Good People", the patient makes several comments referring to himself as a liar and that he should not be trusted. Pt makes statements reflecting a distrust for people and a desire to "cause permanent damage." He signs his note, "the best liar you've met." He states he then tied a belt around his neck and hung it from a door. Pt states, "I was going for blood loss, but something stretched or slipped." He states he began to lose air and started to feel pain, at that moment he realized, "the who thing is stupid, I undid the belt and went to sleep." He did not disclose the attempt to anyone at that time. Pt states the next few days were "normal" for him, until he got in an argument with his friends in which he had accused them of rude actions and words toward him. Pt was assured that these statements were not directed at him, and in his apology, he disclosed his suicide attempt. They then recommended he be admitted for a mental health evaluation. Pt has been treated by this provider since 10/2017. Pt was treated by [facility] after his initial hospitalization in May 2017, and then transferred care. Pt carries a diagnosis of major depressive disorder. Pt reports having taken Zoloft 100mg for about 2 months prior to self discontinuation due to ineffectiveness and sexual side effects. Pt was started on Lexapro and titrated to 15mg as an outpatient. Pt has noticed improvement in depressive symptoms including feeling more "connected" to friends and situations. He denies history of SI, stating this recent attempt was not pre-meditated. Pt denies significant change in sleep or appetite since his last appointment with this provider. He reports his motivation to complete school work has improved slightly. Pt has also been following with Eduard Corley LCSW for therapy. Pt was admitted to [facility] on June 03, 2017 with suicidal thoughts and a plan to "create a lethal toxin in order to have on hand". Pt was encouraged to get treatment after disclosing these thoughts to his counselor at [facility]. Significant depressive symptoms at that time including decreased motivation, apathy, isolative behaviors, anhedonia, and hopelessness. Pt denies current SI. He denies HI, SIB, A/V hallucinations, paranoia, marcos, OCD, PTSD, eating disorder, and other psychiatric concerns. Hospital Course (1) Suicide attempt 11/29 - The patient is admitted to [facility] ([facility] mental health unit) on q 15 min checks (behavioral with suicide precautions) for safety. The patient will participate in group, recreational and milieu therapies and will be offered additional individual and family sessions as clinically appropriate. 11/30 -Continue to work on healthy coping skills and a discharge safety plan. Encourage involvement of his outpatient supports, including roommates and parents. Care has been coordinated with his outpatient mental health providers. 12/03 - Continue to encourage healthy processing of core stressors. Shared safety plan considerations. Encourage honesty with outpatient providers and other supports. (2) Major depression, recurrent 11/29 - Lexapro increased to 20mg qAM. - Will require processing of suicide attempt and contents of suicide note as his reports of improvement are not consistent with his suicide attempt - Encourage participation in group programming including recreational therapy as well as individual and group therapies - Encourage family session with identified supports; encourage patient to contact and discuss recent events with parents if willing - Coordination of care with outpatient providers - Communication with [facility] as needed 11/30 -Patient able to process his state of mind at the time of his suicide attempt and the factors that contributed to this. He would benefit from ongoing discussion about this, identification of healthy coping skills and supports. -Family meeting with roommates today, and willing to consider a meeting with his parents by phone. 12/01 -Family meeting held with mother by phone yesterday, who was supportive. -Continue escitalopram 20 mg daily. Continue participation in groups and therapy, process suicide attempt, and work on healthy coping skills. -Patient submitted a 72 hour notice, but states he is not yet ready for discharge, and is willing to rescind that if ongoing stay is recommended. 12/02 - Continue current meds - Focus on safety planning 12/03 - Continue current medications - Encourage honesty with family and other supports - Focus on safety planning - especially given impulsivity of patient's attempt - Likely discharge tomorrow if maintaining current stability Risk Factors Assessment Male: Yes : No /single/: Yes Higher / Fall in social status: No Health problems: No Mental Health Diagnoses: Yes Substance use disorders: No Previous attempt: Yes Previous attempt;highly lethal: Yes Previous attempt; didn't tell: Yes Family history of suicide: No Previous psychiatric stay: Yes (May 2017) Hopelessness: No Smoker: No Protective Factors Assessment Bahai beliefs: Yes : No Responsible for young children: No Employed: No Stable relationships: No Day of Discharge Assessment COURSE OF HOSPITALIZATION: 22-year-old male brought to ED several days following a suicide attempt by hanging. Pt denies specific stressors precipitating attempt, and states his decision was impulsive. Pt's dose of escitalopram was increased to 20mg with patient consent. He was able to process stressors during the course of his hospitalization including high expectations for performance, strained interactions with peers, and difficulty adjusting to as new environment with regard to cultural expectations and differences. Pt participated in recreational therapy, group therapy, and requested 1:1 counseling while hospitalized and was able to foster healthy coping strategies, challenge cognitive distortions, and prevent negative dialogue. Pt's condition has improved during his stay. DAY OF DISCHARGE ASSESSMENT: Pt's case discussed with nursing. Staff reports the patient is "doing better". At community meeting last evening, patient reported himself an "8" and "feeling pleasant", staff states the patient reported a desire to "experience fewer extremes in emotions". Pt was seen jointly today along with Dr. Choi in order to assess readiness for discharge. Pt states he is feeling "good" and feels discharge today is appropriate. Pt states he was able to continue conversations with staff to encourage ongoing processing of stressors. Staff gave the patient several topics to explore further in his outpatient therapy sessions, which he states he intends to do. Pt denies SI, but reports "flashes of thoughts" stating he has moments he feels that he is "wasting people's time here". Pt reports he is able to run a dialogue of "I don't want to be , I don't want to be ", which is helpful to eliminate these thoughts. Safety plan reviewed with the patient who was encouraged to continue these healthy coping strategies and talk with supports as he feels necessary. Safety plan was completed prior to discharge and personally reviewed by this provider. Summer plans and arrangements for taking finals were discussed and patient reports he is planning to get extensions for his finals due to this hospitalization. Pt reports feeling comfortable and safe to be discharged today. Follow-up appointments with therapist and psychiatric provider scheduled for next week. Based on review of the patient's records and presentation at this encounter, the patient appears appropriate for discharge today. Transition of care record was reviewed with the patient. Pt was encouraged to continue to take medications as prescribed until recommended to stop by another prescriber. The patient presented as alert and cooperative. The patient was casually dressed, recently awoken from sleep. Eye contact was good. No psychomotor restlessness or agitation was noted. Speech was normal in rate, rhythm, and volume. Affect was mood congruent. The patients mood appeared dulled, but affect improving. Thought processes were clear, coherent and goal directed without evidence of loose associations or flight of ideas. Thought content/ perception was reality based without delusions. The patient denied suicidal and homicidal ideation. The patient denied hallucinations and did not appear to be responding to internal stimuli. Cognition was grossly intact with orientation to person, place and time. Fund of Knowledge/Intelligence were consistent with level of education. Insight and Judgement were fair. Laboratory Refer to printed laboratory reports Test 11/27/17 18:18 11/27/17 18:44 Urine Color DK YELLOW Urine Appearance CLEAR Urine pH 5.5 Urine Specific [place] 1.026 Urine Protein NEG Urine Glucose (UA) NEG Urine Ketones NEG Urine Occult Blood NEG Urine Nitrite NEG Urine Bilirubin NEG Urine Urobilinogen NEG Urine Leukocyte Esterase NEG Urine Opiates Screen NEG Urine Methadone, Qualitative NEG Urine Barbiturates NEG Urine Phencyclidine (PCP) Level NEG Ur Amphetamine/Methamphetamine NEG MDMA (Ecstasy) Screen NEG Urine Benzodiazepines Screen NEG Urine Cocaine Metabolite NEG Urine Marijuana (THC) NEG White Blood Count 6.68 Red Blood Count 5.19 Hemoglobin 14.6 Hematocrit 42.9 Mean Corpuscular Volume 82.7 Mean Corpuscular Hemoglobin 28.1 Mean Corpuscular Hemoglobin Concent 34.0 Platelet Count 265 Mean Platelet Volume 9.8 Neutrophils (%) (Auto) 66.3 Lymphocytes (%) (Auto) 27.1 Monocytes (%) (Auto) 4.6 Eosinophils (%) (Auto) 1.5 Basophils (%) (Auto) 0.4 Neutrophils # (Auto) 4.42 Lymphocytes # (Auto) 1.81 Monocytes # (Auto) 0.31 Eosinophils # (Auto) 0.10 Basophils # (Auto) 0.03 RDW Standard Deviation 36.5 RDW Coefficient of Variation 12.1 Immature Granulocyte % (Auto) 0.1 Immature Granulocyte # (Auto) 0.01 Sodium Level 137 Potassium Level 3.9 Chloride Level 105 Carbon Dioxide Level 27 Anion Gap 5.0 Blood Urea Nitrogen 18 Creatinine 1.25 Est Creatinine Clear Calc Drug Dose 95.2 Estimated GFR () 94.8 Estimated GFR (Non- 81.8 BUN/Creatinine Ratio 14.4 Random Glucose 90 Calcium Level 9.1 Total Bilirubin 0.9 Direct Bilirubin 0.2 Aspartate Amino Transferase (AST) 17 Alanine Aminotransferase (ALT) 22 Alkaline Phosphatase 98 Total Protein 7.4 Albumin 4.1 Lipase 124 Thyroid Stimulating Hormone (TSH) 1.480 Salicylates Level < 1.7 Acetaminophen Level < 2 Ethyl Alcohol mg/dL < 3.0 Total Time Total Time Spent (min): Greater than 30 minutes Total Time Included: examination of the patient, discharge planning, medication reconciliation, communication with other providers Tobacco Cessation at Discharge Smoking Status: Never Smoker FDA approved Prescription: non-smoker Copies To Additional Copies To: Shreya Ramirez PA-C
--- NOTE | 2017-12-04 13:52 | Progress Note ---
Progress Note Date of Service Dec 04, 2017. Progress Note pt seen and assessed by me with OBIE Cash please see discharge instructions summary for details of assessment, which are accurate and reflect my assessment and plan and discharge instructions and med rec for discharge. Pt is considered appropriate for discharge and has appropriate aftercare with pt indicating plan to attend aftercare appts.
== END 2017-12-04 10:20 | disposition home or self-care (01) | DRG 885 ==
LOC: C.EDB 17:47 → C.MHU 11-28 14:02
PROVIDERS: ADMIT Psychiatry & Neurology Child & Adolescent Psychiatry; ATTEND Psychiatry & Neurology Psychiatry
DX: F33.9 Major depressive disorder, recurrent, unspecified (principal); Z91.5 Personal history of self-harm; Z62.810 Personal history of physical and sexual abuse in childhood; Z62.811 Personal history of psychological abuse in childhood; Z79.899 Other long term (current) drug therapy; Z88.0 Allergy status to penicillin; Z81.1 Family history of alcohol abuse and dependence; Z81.8 Family history of other mental and behavioral disorders

== ENCOUNTER 2018-01-06 20:06 | Emergency (ER) | payer OTHER ==
[~2018-01-06] VITALS: Ht 177.8 cm; Wt 72.5 kg
[~2018-01-06 20:06] MED LIST changes: +ESCI10TA17 PO; -ZLF/100 PO
[2018-01-06 20:20] VITALS: TEMP 36.6; Ht 177.8 cm; Wt 72.5 kg
--- NOTE | 2018-01-06 20:34 | EMERGENCY ROOM VISIT NOTE ---
History Report prepared by Nicole: Lata Crowder Under the Supervision of: Dr. Beka Nevarez M.D. 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 Positive SI. Negative nausea, vomiting, abdominal pain, HI. He states he generally suffers from depression and has suicidal thoughts but it has worsened over the past few days. He denies hearing voices and notes he is only hearing his own thoughts. He has no current plan to hurt others and states he has never thought about it. He has planned to hang himself with a belt and attempted to around 1 month ago and has been thinking about it again for the past couple of days. 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 He currently takes Lexapro and states he has missed 2 doses 2 days ago. 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 Negative HI. Review of Systems See HPI for pertinent positives and negatives. A total of ten systems were reviewed and were otherwise negative. 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 EYES: Normal conjunctiva. Sclera non-icteric. PERRL. No anisocoria. NECK: Supple. No nuchal rigidity. FROM. RESPIRATORY: CTAB, no rhonchi, wheezing, crackles CARDIAC: RRR, no MRG ABDOMEN: Soft, NTND, BS+ MSK: No chest wall TTP, no LE edema NEURO: GCS 15, CN 2-12 intact, moves all 4s on command PSYCH: Positive SI, no HI, no AVH, no formication. SKIN: No rash or jaundice noted. Medical Decision & Procedures Laboratory Results 01/06/18 20:52 Red Blood Count 5.38, Mean Corpuscular Volume 81.6, Mean Corpuscular Hemoglobin 28.4, Mean Corpuscular Hemoglobin Concent 34.9, Mean Platelet Volume 9.8, Neutrophils (%) (Auto) 64.8, Lymphocytes (%) (Auto) 27.9, Monocytes (%) (Auto) 5.0, Eosinophils (%) (Auto) 1.3, Basophils (%) (Auto) 0.7, Neutrophils # (Auto) 4.52, Lymphocytes # (Auto) 1.95, Monocytes # (Auto) 0.35, Eosinophils # (Auto) 0.09, Basophils # (Auto) 0.05 01/06/18 20:52 Test 01/06/18 20:52 01/06/18 21:53 White Blood Count 6.98 K/uL (4.8-10.8) Red Blood Count 5.38 M/uL (4.7-6.1) Hemoglobin 15.3 g/dL (14.0-18.0) Hematocrit 43.9 % (42-52) Mean Corpuscular Volume 81.6 fL (80-100) Mean Corpuscular Hemoglobin 28.4 pg (25-34) Mean Corpuscular Hemoglobin Concent 34.9 g/dl (32-36) Platelet Count 263 K/uL (130-400) Mean Platelet Volume 9.8 fL (7.4-10.4) Neutrophils (%) (Auto) 64.8 % Lymphocytes (%) (Auto) 27.9 % Monocytes (%) (Auto) 5.0 % Eosinophils (%) (Auto) 1.3 % Basophils (%) (Auto) 0.7 % Neutrophils # (Auto) 4.52 K/uL (1.4-6.5) Lymphocytes # (Auto) 1.95 K/uL (1.2-3.4) Monocytes # (Auto) 0.35 K/uL (0.11-0.59) Eosinophils # (Auto) 0.09 K/uL (0-0.5) Basophils # (Auto) 0.05 K/uL (0-0.2) RDW Standard Deviation 35.8 fL (36.4-46.3) RDW Coefficient of Variation 12.1 % (11.5-14.5) Immature Granulocyte % (Auto) 0.3 % Immature Granulocyte # (Auto) 0.02 K/uL (0.00-0.02) Anion Gap 6.0 mmol/L (3-11) Est Creatinine Clear Calc Drug Dose 113.0 ml/min Estimated GFR () 115.7 Estimated GFR (Non- 99.8 BUN/Creatinine Ratio 13.7 (10-20) Calcium Level 9.3 mg/dl (8.5-10.1) Total Bilirubin 1.4 mg/dl (0.2-1) Direct Bilirubin 0.3 mg/dl (0-0.2) Aspartate Amino Transf (AST/SGOT) 16 U/L (15-37) Alanine Aminotransferase (ALT/SGPT) 22 U/L (12-78) Alkaline Phosphatase 83 U/L (45-117) Total Protein 7.7 gm/dl (6.4-8.2) Albumin 4.4 gm/dl (3.4-5.0) Thyroid Stimulating Hormone (TSH) 1.040 uIu/ml (0.300-4.500) Salicylates Level < 1.7 mg/dl (2.8-20) Acetaminophen Level < 2 ug/ml (10-30) Ethyl Alcohol mg/dL < 3.0 mg/dl (0-3) Urine Color YELLOW Urine Appearance CLEAR (CLEAR) Urine pH 6.0 (4.5-7.5) Urine Specific [place] 1.021 (1.000-1.030) Urine Protein NEG (NEG) Urine Glucose (UA) NEG (NEG) Urine Ketones NEG (NEG) Urine Occult Blood NEG (NEG) Urine Nitrite NEG (NEG) Urine Bilirubin NEG (NEG) Urine Urobilinogen NEG (NEG) Urine Leukocyte Esterase NEG (NEG) Urine Opiates Screen NEG (NEG) Urine Methadone, Qualitative NEG (NEG) Urine Barbiturates NEG (NEG) Urine Phencyclidine (PCP) Level NEG (NEG) Ur Amphetamine/Methamphetamine NEG (NEG) MDMA (Ecstasy) Screen NEG (NEG) Urine Benzodiazepines Screen NEG (NEG) Urine Cocaine Metabolite NEG (NEG) Urine Marijuana (THC) POS (NEG) Laboratory results reviewed by me ED Course 2023: The patient was evaluated in room A6. A complete history and physical exam was performed. 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 Positive SI. Negative nausea, vomiting, abdominal pain, HI. Differential diagnosis: Etiologies such as mood disorder, infection, hypoglycemia, electrolyte abnormalities, cardiac sources, intracerebral event, toxicologic, neurologic, as well as others were entertained. Patient was seen and evaluated the bedside. The patient has noted some increasing suicidal ideation. The patient does have a prior history of trying to hang himself with a belt which could 3 months prior. The patient was stating that he had similar thoughts today. Patient denies any HI. Patient has recently used marijuana approximately 1 week ago. Patient denies any acute alcohol, tobacco, or drug use with the last several days. The patient is following commands and has no acute symptomatically plates. Patient did blood work completed along with urinalysis, UDS, and tox screen. Patient did have trace elevations in his bili is. No elevations in LFTs are alk phos. This is not necessarily significant especially given that the patient is not jaundice and the patient lacks any fever abdominal pain. I did discuss the case with the on-call mental specialist who agreed the patient should stay for inpatient psychiatric treatment. Signed out to night time physician pending placement, further eval, and treatment. Medication Reconcilliation Current Medication List: was personally reviewed by me Blood Pressure Screening Patient's blood pressure: Low blood pressure Blood pressure disposition: Did not require urgent referral Impression Primary Impression: Suicidal ideation Additional Impression: Depression Scribe Attestation The scribe's documentation has been prepared under my direction and personally reviewed by me in its entirety. I confirm that the note above accurately reflects all work, treatment, procedures, and medical decision making performed by me. Departure Information Referrals No Doctor, Assigned (PCP) Patient Instructions My [facility] Problem Qualifiers Additional Impression: Depression Depression Type: unspecified Qualified Codes: F32.9 - Major depressive disorder, single episode, unspecified
[2018-01-06 21:13] LABS: BASO % 0.7 %; BASO ABS # 0.05 K/uL (0-0.2); EOS % 1.3 %; EOS ABS # 0.09 K/uL (0-0.5); HEMATOCRIT 43.9 % (42-52); HEMOGLOBIN 15.3 g/dL (14.0-18.0); IG# 0.02 K/uL (0.00-0.02); LYMPH % 27.9 %; LYMPH ABS # 1.95 K/uL (1.2-3.4); MEAN CELL VOLUME 81.6 fL (80-100); MEAN CORPUSCULAR HEMOGLOBIN 28.4 pg (25-34); MEAN CORPUSCULAR HGB CONC 34.9 g/dl (32-36); MEAN PLATELET VOLUME 9.8 fL (7.4-10.4); MONO ABS # 0.35 K/uL (0.11-0.59); NEUT % 64.8 %; NEUT ABS # 4.52 K/uL (1.4-6.5); PLATELET COUNT 263 K/uL (130-400); RED CELL DISTRIBUTION WIDTH CV 12.1 % (11.5-14.5); RED CELL DISTRIBUTION WIDTH SD 35.8 fL (36.4-46.3); WHITE BLOOD COUNT 6.98 K/uL (4.8-10.8)
[2018-01-06 21:40] LABS: ALBUMIN 4.4 gm/dl (3.4-5.0); CALCIUM 9.3 mg/dl (8.5-10.1); CREATININE 1.06 mg/dl (0.60-1.40); POTASSIUM 3.8 mmol/L (3.5-5.1); TOTAL PROTEIN 7.7 gm/dl (6.4-8.2)
--- NOTE | 2018-01-07 05:16 | EMERGENCY ROOM VISIT NOTE ---
ED Visit Note First contact with patient: 01:52 This case was signed out to me at change of shift. The patient has been accepted at the [facility] and will be transferred there in the morning. The patient is resting comfortably throughout the night. There is a bed hold at the [facility] for this patient as they are anticipating discharges this morning. The case will be signed out to Dr. Wang a change of shift for final disposition.
[2018-01-07] MEDS ORDERED: ESCITALOPRAM OXALATE 20 MG TAB PO SCH ×2 (09:00)
[2018-01-07 12:16] VITALS: BP 98/61; PULSE 96; O2SAT 98
--- NOTE | 2018-01-07 12:51 | EMERGENCY ROOM VISIT NOTE ---
ED Visit Note First contact with patient: 12:50 I received this patient at change of shift signout from Dr. Ramesh. The patient was medically cleared previously. I reviewed the patient's previous medical clearance. The patient was felt to be a good candidate for inpatient management. The patient was accepted at the [facility] this morning and was transported to the [facility]. The patient did not require any intervention on my part.
== END 2018-01-07 12:16 ==
LOC: C.EDB 20:08 → C.EDA 01-07 12:16
DX: R45.851 Suicidal ideations (principal); F33.9 Major depressive disorder, recurrent, unspecified; Z91.5 Personal history of self-harm; Z88.0 Allergy status to penicillin